=== PATIENT | male | born 1965 | race African-American/Black ===

== ENCOUNTER 2016-12-23 12:56 | Inpatient (IN) | payer OTHER ==
[2016-12-23 13:46] VITALS: BMI 37.9
--- NOTE | 2016-12-23 17:18 | HP ---
COWS - Scale Resting Pulse: 2= [place] 101-120 Sweatin= Chills/Flushing Restless Observation: 1= Difficult to Sit Still Pupil Size: 0= Normal to Room Light Bone or Joint Aches: 2= Severe Diffuse Aches Runny Nose/ Eye Tearin= Runny Nose/Eyes GI Upset > 30mins: 2= Nausea/Diarrhea Tremor Observation: 2= Slight Tremor Visible Yawning Observation: 0= None Anxiety or Irritability: 2=Irritable/Anxious Goose Flesh Skin: 0=Smooth Skin COWS Score: 14 CIWA Score - CIWA Score Nausea/Vomitin-Mild Nausea/No Vomiting Muscle Tremors: 4-Moderate,w/Arms Extend Anxiety: 4-Mod. Anxious/Guarded Agitation: 4-Moderately Restless Paroxysmal Sweats: 1-Minimal Palms Moist Orientation: 0-Oriented Tacttile Disturbances: 0-None Auditory Disturbances: 0-None Visual Disturbances: 0-None Headache: 0-None Present CIWA-Ar Total Score: 14 Admission ROS S - HPI Chief Complaint: WITHDRAWAL SX Allergies/Adverse Reactions: Allergies Allergy/AdvReac Type Severity Reaction Status Date / Time No Known Drug Allergies Allergy Verified 12/23/16 16:39 Red meat AdvReac Uncoded 12/23/16 16:39 History of Present Illness: 51 YEARS OLD MALE WITH LONG HISTORY OF ALCOHOL XANAX NICOTINE DEPENDENCE, DENIES MEDICAL ISSUE DENIES MENTAL ILLNESS IS ADMITTED TO DETOX Exam Limitations: No Limitations - Ebola screening Have you traveled outside of the country in the last 21 days: No Have you had contact with anyone from an Ebola affected area: No Have you been sick,other than usual withdrawal symptoms: No Do you have a fever: No - Review of Systems Constitutional: Changes in sleep, Weight Stable EENT: reports: No Symptoms Reported Respiratory: reports: No Symptoms reported Cardiac: reports: No Symptoms Reported GI: reports: Nausea, Poor Fluid Intake, Abdominal cramping : reports: No Symptoms Reported Musculoskeletal: reports: Back Pain, Joint Pain, Muscle Pain, Neck Pain Integumentary: reports: No Symptoms Reported Neuro: reports: Tremors Endocrine: reports: No Symptoms Reported Hematology: reports: No Symptoms Reported Psychiatric: reports: Judgement Intact, Mood/Affect Appropiate, Orientated x3 Other Systems: Reviewed and Negative Patient History - Patient Medical History Hx Anemia: No Hx Asthma: No Hx Chronic Obstructive Pulmonary Disease (COPD): No Hx Cancer: No Hx Cardiac Disorders: No Hx Congestive Heart Failure: No Hx Hypertension: No Hx Hypercholesterolemia: No Hx Pacemaker: No HX Cerebrovascular Accident: No Hx Seizures: No Hx Dementia: No Hx Diabetes: No Hx Gastrointestinal Disorders: No Hx Liver Disease: No Hx Genitourinary Disorders: No Hx Sexually Transmitted Disorders: No Hx Renal Disease (ESRD): No Hx Thyroid Disease: No Hx Human Immunodeficiency Virus (HIV): No Hx Hepatitis C: No Hx Depression: No Hx Suicide Attempt: No Hx Bipolar Disorder: No Hx Schizophrenia: No - Patient Surgical History Past Surgical History: No - PPD History Previous Implant?: Yes Documented Results: Negative w/o proof Implanted On Prior [facility] Admission?: No PPD to be Administered?: Yes - Smoking Cessation Smoking history: Current every day smoker Have you smoked in the past 12 months: Yes Aproximately how many cigarettes per day: 20 Cigars Per Day: 0 Hx Chewing Tobacco Use: No Initiated information on smoking cessation: Yes 'Breaking Loose' booklet given: 12/23/16 - Substance & Tx. History Hx Alcohol Use: Yes Hx Substance Use: Yes Substance Use Type: Alcohol, Heroin, Tranquilizers Hx Substance Use Treatment: Yes (2010) - Substances Abused Alprazolam (Xanax) Route: Oral Frequency: Daily Amount used: 6-8MG Age of first use: 33 Date of Last Use: 12/22/16 Heroin Route: Inhalation Frequency: Daily Amount used: 20 BAGS Age of first use: 16 Date of Last Use: 12/22/16 Alcohol Route: Oral Frequency: Daily Amount used: 1 PINT MIC[place]EL Age of first use: 17 Date of Last Use: 12/22/16 Admission Physical Exam [facility] - Vital Signs Vital Signs: Vital Signs - 24 hr 12/23/16 13:44 Temperature 98.7 F Pulse Rate 105 H Respiratory 18 Rate Blood Pressure 152/119 [facility] Breath Alcohol Content Breath Alcohol Content: 0 Urine Drug Screen - Results Drug Screen Negative: No Urine Drug Screen Results: OPI-Opiates, BZO-Benzodiazepines, MTD-Methadone
[2016-12-23] MEDS ORDERED: MAG HYDROX/AL HYDROX/SIMETH 30 ML UNIT-DOSE CUP PO PRN (17:47)
[2016-12-23] MEDS ORDERED: MAGNESIUM CITRATE 300 ML BOTTLE PO PRN (17:47)
[2016-12-23] MEDS ORDERED: LOPERAMIDE HCL 2 MG CAPSULE PO PRN (17:47)
[2016-12-23] MEDS ORDERED: diphenhydrAMINE HCL 50 MG CAPSULE PO PRN (17:47)
[2016-12-23] MEDS ORDERED: MAGNESIUM HYDROX 2400MG/30ML ORAL SUSPENSION 30 ML CUP PO PRN (17:47)
[2016-12-23] MEDS ORDERED: NICOTINE 21 MG/24 HOURS TOPICAL PATCH TD PRN (17:47)
[2016-12-23] MEDS ORDERED: ACETAMINOPHEN 325 MG TABLET (FP) PO PRN (17:47)
[2016-12-23] MEDS ORDERED: MENTHOL/PHENOL 1 EACH UD MM PRN (17:47)
[2016-12-23] MEDS ORDERED: P-EPHED 60MG/TRIPROLIDI 2.5MG TABLET PO PRN (17:47)
[2016-12-23] MEDS ORDERED: IBUPROFEN 400 MG TABLET (FP) PO PRN (17:47)
[2016-12-23] MEDS ORDERED: NICOTINE POLACRILEX 4 MG GUM BC PRN (17:47)
[2016-12-23] MEDS ORDERED: guaiFENesin/D-METHORPHAN HB 10 ML UNIT-DOSE CUPS PO PRN (17:47)
--- NOTE | 2016-12-23 17:47 | HP ---
COWS - Scale Resting Pulse: 2= [place] 101-120 Sweatin= Chills/Flushing Restless Observation: 3= Extraneous Movement Pupil Size: 0= Normal to Room Light Bone or Joint Aches: 1= Mild Discomfort Runny Nose/ Eye Tearin= Nasal Congestion GI Upset > 30mins: 3= Vomiting/Diarrhea Tremor Observation: 2= Slight Tremor Visible Yawning Observation: 0= None Anxiety or Irritability: 2=Irritable/Anxious Goose Flesh Skin: 0=Smooth Skin COWS Score: 15 CIWA Score - CIWA Score Nausea/Vomitin Muscle Tremors: 4-Moderate,w/Arms Extend Anxiety: 3 Agitation: 2 Paroxysmal Sweats: 1-Minimal Palms Moist Orientation: 1-Uncertain about Date Tacttile Disturbances: 0-None Auditory Disturbances: 0-None Visual Disturbances: 0-None Headache: 1-Very Mild CIWA-Ar Total Score: 14 Admission ROS [facility] - HPI Chief Complaint: withdrawal sx Allergies/Adverse Reactions: Allergies Allergy/AdvReac Type Severity Reaction Status Date / Time No Known Drug Allergies Allergy Verified 12/23/16 16:39 Red meat AdvReac Uncoded 12/23/16 16:39 History of Present Illness: 51 years old male with long history of alcohol xanax opiate nicotine dependence denies medical denies mental illness is admitted to detox Exam Limitations: No Limitations - Ebola screening Have you traveled outside of the country in the last 21 days: No Have you had contact with anyone from an Ebola affected area: No Have you been sick,other than usual withdrawal symptoms: No Do you have a fever: No - Review of Systems Constitutional: Changes in sleep, Weight Stable EENT: reports: No Symptoms Reported Respiratory: reports: No Symptoms reported Cardiac: reports: No Symptoms Reported GI: reports: Nausea, Poor Fluid Intake, Vomiting, Abdominal cramping : reports: No Symptoms Reported Musculoskeletal: reports: Back Pain, Joint Pain, Muscle Pain, Neck Pain Integumentary: reports: No Symptoms Reported Neuro: reports: Tremors Endocrine: reports: No Symptoms Reported Hematology: reports: No Symptoms Reported Psychiatric: reports: Judgement Intact, Mood/Affect Appropiate Other Systems: Reviewed and Negative Patient History - Patient Medical History Hx Anemia: No Hx Asthma: No Hx Chronic Obstructive Pulmonary Disease (COPD): No Hx Cancer: No Hx Cardiac Disorders: No Hx Congestive Heart Failure: No Hx Hypertension: No Hx Hypercholesterolemia: No Hx Pacemaker: No HX Cerebrovascular Accident: No Hx Seizures: No Hx Dementia: No Hx Diabetes: No Hx Gastrointestinal Disorders: No Hx Liver Disease: No Hx Genitourinary Disorders: No Hx Sexually Transmitted Disorders: No Hx Renal Disease (ESRD): No Hx Thyroid Disease: No Hx Human Immunodeficiency Virus (HIV): No Hx Hepatitis C: No Hx Depression: No Hx Suicide Attempt: No Hx Bipolar Disorder: No Hx Schizophrenia: No - Patient Surgical History Past Surgical History: No - PPD History Previous Implant?: Yes Documented Results: Negative w/o proof Implanted On Prior [facility] Admission?: No PPD to be Administered?: Yes - Smoking Cessation Smoking history: Current every day smoker Have you smoked in the past 12 months: Yes Aproximately how many cigarettes per day: 20 Hx Chewing Tobacco Use: No Initiated information on smoking cessation: Yes 'Breaking Loose' booklet given: 12/23/16 - Substance & Tx. History Hx Alcohol Use: Yes Hx Substance Use: Yes Substance Use Type: Alcohol, Heroin, Tranquilizers Hx Substance Use Treatment: Yes (2010 [facility]) - Substances Abused Alprazolam (Xanax) Route: Oral Frequency: Daily Amount used: 6-8MG Age of first use: 33 Date of Last Use: 12/22/16 Heroin Route: Inhalation Frequency: Daily Amount used: 20 BAGS Age of first use: 16 Date of Last Use: 12/22/16 Alcohol Route: Oral Frequency: Daily Amount used: 1 P[place] MICHAEL Age of first use: 17 Date of Last Use: 12/22/16 Family Disease History - Family Disease History Family Disease History: Other: Father () Admission Physical Exam [facility] - Vital Signs Vital Signs: Vital Signs - 24 hr 12/23/16 13:44 Temperature 98.7 F Pulse Rate 105 H Respiratory 18 Rate Blood Pressure 152/119 - Physical General Appearance: Yes: Appropriately Dressed, Mild Distress, Obese, Tremorous , Irritable, Sweating, Anxious HEENTM: Yes: Hearing grossly Normal, Normal ENT Inspection, Normocephalic, Normal Voice Respiratory: Yes: Chest Non-Tender, Lungs Clear, Normal Breath Sounds, No Respiratory Distress, No Accessory Muscle Use Neck: Yes: Supple, Trachea in good position Breast: Yes: Breasts Symetrical Cardiology: Yes: Regular Rhythm, S1, S2, Tachycardia Abdominal: Yes: Non Tender, Soft, Increased Bowel Sounds Genitourinary: Yes: Within Normal Limits Back: Yes: Normal Inspection Musculoskeletal: Yes: full range of Motion, Gait Steady, Back pain, Muscle Pain Extremities: Yes: Normal Inspection, Normal Range of Motion, Non-Tender, Tremors Neurological: Yes: Alert, Motor Strength 5/5, Normal Mood/Affect, Normal Response Integumentary: Yes: Warm Lymphatic: Yes: Within Normal Limits - Diagnostic (1) Alcohol dependence with uncomplicated withdrawal Current Visit: Yes Status: Acute (2) Nicotine dependence Current Visit: Yes Status: Acute Qualifiers: Nicotine product type: cigarettes Substance use status: in withdrawal Qualified Code(s): F17.213 - Nicotine dependence, cigarettes, with withdrawal; F17.213 - Nicotine dependence, cigarettes, with withdrawal (3) Opioid dependence with withdrawal Current Visit: Yes Status: Acute (4) Sedative, hypnotic or anxiolytic dependence with withdrawal, uncomplicated Current Visit: Yes Status: Acute Cleared for Admission [facility] - Detox or Rehab [facility] Level of Care: Medically Managed Detox Regimen/Protocol: Methadone/Valium [facility] Breath Alcohol Content Breath Alcohol Content: 0 Urine Drug Screen - Results Drug Screen Negative: No Urine Drug Screen Results: OPI-Opiates, BZO-Benzodiazepines, MTD-Methadone
[2016-12-23] MEDS ORDERED: diazePAM 5 MG TABLET PO ONE (18:15)
[2016-12-23] MEDS ORDERED: METHADONE HCL 10 MG TABLET (FOR DETOX USE ONLY) PO ONE ×2 (18:30→23:00)
[2016-12-23 22:01] LABS: URINE APPEARANCE SLCLOUDY; URINE BILIRUBIN NEGATIVE (NEGATIVE); URINE BLOOD NEGATIVE (NEGATIVE); URINE COLOR DKYELLOW; URINE GLUCOSE (UA) NEGATIVE (NEGATIVE); URINE KETONE NEGATIVE (NEGATIVE); URINE NITRITE NEGATIVE (NEGATIVE); URINE PROTEIN NEGATIVE (NEGATIVE); URINE UROBILINOGEN NEGATIVE mg/dL (0.2-1.0)
[2016-12-23] MEDS: diazePAM 5 MG TABLET PO SCH (22:44)
[2016-12-23] MEDS: CLOTRIMAZOLE 1% CREAM 15 GM TUBE TP SCH (22:44)
[2016-12-23] MEDS: THIAMINE HCL 100 MG TABLET (FP) PO SCH (22:44)
[2016-12-24] MEDS: diazePAM 5 MG TABLET PO PRN ×2 (02:56→10:59)
[2016-12-24] MEDS: diazePAM 5 MG TABLET PO SCH (06:35)
[2016-12-24 09:21] LABS: MCH 25.1 pg (25.7-33.7); MCHC 31.8 g/dl (32.0-35.9); MEAN PLT VOLUME 9.2 fl (7.5-11.1); PLATELET COUNT 265 K/MM3 (134-434); RDW 15.7 % (11.9-15.9); WHITE BLOOD COUNT 7.1 K/mm3 (4.0-10.0)
[2016-12-24] MEDS ORDERED: METHADONE HCL 10 MG TABLET (FOR DETOX USE ONLY) PO SCH (10:00)
[2016-12-24 10:16] LABS: HIV 1 & 2 AB NEGATIVE; HIV 1 AGp24 NEGATIVE
[2016-12-24 10:19] LABS: URINE LEUK ESTERASE Negative (NEGATIVE)
[2016-12-24 10:48] LABS: ALBUMIN 3.3 g/dl (3.4-5.0); ANION GAP 8 (8-16); BILIRUBIN,TOTAL 0.2 mg/dL (0.2-1.0); CALCIUM 8.1 mg/dL (8.5-10.1); CO2 27 mmol/L (21-32); CREATININE 1.2 mg/dL (0.7-1.3); GLUCOSE,RANDOM 96 mg/dL (74-106); SGOT/AST 20 U/L (15-37); SGPT/ALT 31 U/L (12-78)
[2016-12-24 10:49] LABS: ALK PHOS 77 U/L (45-117); TOT PROT 6.8 g/dl (6.4-8.2)
[2016-12-24] MEDS: PRENATAL VITAMINS W/ FOLIC ACID TABLET (FP) PO SCH (10:58)
[2016-12-24] MEDS: CLOTRIMAZOLE 1% CREAM 15 GM TUBE TP SCH ×2 (10:59→22:30)
--- NOTE | 2016-12-24 12:46 | PN ---
S CIWA - CIWA Score Nausea/Vomitin Muscle Tremors: 3 Anxiety: 2 Agitation: 1-Slight > Activity Paroxysmal Sweats: No Perspiration Orientation: 1-Uncertain about Date Tacttile Disturbances: 0-None Auditory Disturbances: 1-Very Mild Visual Disturbances: 2-Mild Sensitivity Headache: 2-Mild CIWA-Ar Total Score: 14 S COWS - Scale Resting Pulse: 0= [place] 80 or Below Sweatin=Flushed/Facial Moisture Restless Observation: 1= Difficult to Sit Still Pupil Size: 2= Moderately Dilated Bone or Joint Aches: 1= Mild Discomfort Runny Nose/ Eye Tearin= Runny Nose/Eyes GI Upset > 30mins: 1= Stomach Cramp Tremor Observation of Outstretched Hands: 0= None Yawning Observation: 0= None Anxiety or Irritability: 2=Irritable/Anxious Goose Flesh Skin: 0=Smooth Skin COWS Score: 11 S Progress Note (SOAP) Objective: 12/24/16 12:45 Laboratory Tests 12/23/16 12/24/16 12/24/16 21:00 07:50 07:50 WBC 7.1 RBC 4.82 Hgb 12.1 Hct 38.1 MCV 79.0 L MCH 25.1 L MCHC 31.8 L RDW 15.7 Plt Count 265 MPV 9.2 Sodium Potassium Chloride Carbon Dioxide Anion Gap BUN Creatinine Creat Clearance w eGFR Random Glucose Calcium Total Bilirubin AST ALT Alkaline Phosphatase Total Protein Albumin Urine Color Dkyellow Urine Appearance Slcloudy Urine pH 5.0 Ur Specific [place] >= 1.030 H Urine Protein Negative Urine Glucose (UA) Negative Urine Ketones Negative Urine Blood Negative Urine Nitrite Negative Urine Bilirubin Negative Urine Urobilinogen Negative Ur Leukocyte Esterase Negative RPR Titer HIV 1&2 Antibody Screen Negative HIV P24 Antigen Negative 12/24/16 12/24/16 07:50 07:50 WBC RBC Hgb Hct MCV MCH MCHC RDW Plt Count MPV Sodium 139 Potassium 4.0 Chloride 104 Carbon Dioxide 27 Anion Gap 8 BUN 16 Creatinine 1.2 Creat Clearance w eGFR > 60 Random Glucose 96 Calcium 8.1 L Total Bilirubin 0.2 AST 20 ALT 31 Alkaline Phosphatase 77 Total Protein 6.8 Albumin 3.3 L Urine Color Urine Appearance Urine pH Ur Specific [place] Urine Protein Urine Glucose (UA) Urine Ketones Urine Blood Urine Nitrite Urine Bilirubin Urine Urobilinogen Ur Leukocyte Esterase RPR Titer Nonreactive HIV 1&2 Antibody Screen HIV P24 Antigen Vital Signs - 24 hr 12/23/16 12/23/16 12/23/16 13:44 19:06 23:53 Temperature 98.7 F 96.0 F L 97.5 F L Pulse Rate 105 H 99 H 91 H Respiratory 18 20 20 Rate Blood Pressure 152/119 150/97 121/84 12/24/16 12/24/16 12/24/16 04:35 06:49 11:24 Temperature 97.6 F 98.1 F Pulse Rate 104 H 83 Respiratory 18 18 20 Rate Blood Pressure 134/96 130/78 Assessment: 12/24/16 12:46 withdrawal Plan: cont detox protocol
[2016-12-24] MEDS ORDERED: chlordiazePOXIDE HCL 25 MG CAPSULE PO PRN (13:06)
[2016-12-24] MEDS ORDERED: chlordiazePOXIDE HCL 25 MG CAPSULE PO ONE (13:06)
--- NOTE | 2016-12-24 13:20 | EKG ---
Test Reason : Blood Pressure : / mmHG Vent. Rate : 096 BPM Atrial Rate : 096 BPM P-R Int : 170 ms QRS Dur : 098 ms QT Int : 364 ms P-R-T Axes : 046 -02 037 degrees QTc Int : 459 ms NORMAL SINUS RHYTHM POSSIBLE LEFT ATRIAL ENLARGEMENT BORDERLINE ECG NO PREVIOUS ECGS AVAILABLE Confirmed by MICHELINE SIMMS, KIZZY ([id number] on 12/24/2016 1:19:43 PM Referred By: Confirmed By:KIZZY TOBIAS MD
[2016-12-24] MEDS: chlordiazePOXIDE HCL 25 MG CAPSULE PO SCH ×2 (22:09→23:07)
[2016-12-24] MEDS: THIAMINE HCL 100 MG TABLET (FP) PO SCH (22:30)
[2016-12-25] MEDS: chlordiazePOXIDE HCL 25 MG CAPSULE PO SCH ×2 (06:54→11:25)
[2016-12-25] MEDS ORDERED: diazePAM 5 MG TABLET PO SCH (10:00)
[2016-12-25] MEDS: CLOTRIMAZOLE 1% CREAM 15 GM TUBE TP SCH ×2 (11:25→22:46)
[2016-12-25] MEDS: PRENATAL VITAMINS W/ FOLIC ACID TABLET (FP) PO SCH (11:25)
[2016-12-25] MEDS: METHADONE HCL 5 MG TABLET (FOR DETOX USE ONLY) PO SCH (11:39)
--- NOTE | 2016-12-25 14:56 | PN ---
S CIWA - CIWA Score Nausea/Vomitin-Mild Nausea/No Vomiting Muscle Tremors: 3 Anxiety: 3 Agitation: 4-Moderately Restless Paroxysmal Sweats: 3 Orientation: 0-Oriented Tacttile Disturbances: 0-None Auditory Disturbances: 0-None Visual Disturbances: 0-None Headache: 0-None Present CIWA-Ar Total Score: 14 [facility]HS COWS - Scale Resting Pulse: 0= [place] 80 or Below Sweatin=Flushed/Facial Moisture Restless Observation: 1= Difficult to Sit Still Pupil Size: 0= Normal to Room Light Bone or Joint Aches: 1= Mild Discomfort Runny Nose/ Eye Tearin= Runny Nose/Eyes GI Upset > 30mins: 2= Nausea/Diarrhea Tremor Observation of Outstretched Hands: 2= Slight Tremor Visible Yawning Observation: 1= 1-2x During Session Anxiety or Irritability: 2=Irritable/Anxious Goose Flesh Skin: 0=Smooth Skin COWS Score: 13 S Progress Note (SOAP) Subjective: Anxiety,tremors,sweating,interrupted sleep,constipation. Objective: 12/25/16 14:55 Last Vital Signs Temp Pulse Resp BP Pulse Ox 97.7 F 74 20 86/55 12/25/16 06:00 12/25/16 06:00 12/25/16 06:00 12/25/16 06:00 Laboratory Tests 12/23/16 12/24/16 12/24/16 21:00 07:50 07:50 WBC 7.1 RBC 4.82 Hgb 12.1 Hct 38.1 MCV 79.0 L MCH 25.1 L MCHC 31.8 L RDW 15.7 Plt Count 265 MPV 9.2 Sodium Potassium Chloride Carbon Dioxide Anion Gap BUN Creatinine Creat Clearance w eGFR Random Glucose Calcium Total Bilirubin AST ALT Alkaline Phosphatase Total Protein Albumin Urine Color Dkyellow Urine Appearance Slcloudy Urine pH 5.0 Ur Specific [place] >= 1.030 H Urine Protein Negative Urine Glucose (UA) Negative Urine Ketones Negative Urine Blood Negative Urine Nitrite Negative Urine Bilirubin Negative Urine Urobilinogen Negative Ur Leukocyte Esterase Negative RPR Titer HIV 1&2 Antibody Screen Negative HIV P24 Antigen Negative 12/24/16 12/24/16 07:50 07:50 WBC RBC Hgb Hct MCV MCH MCHC RDW Plt Count MPV Sodium 139 Potassium 4.0 Chloride 104 Carbon Dioxide 27 Anion Gap 8 BUN 16 Creatinine 1.2 Creat Clearance w eGFR > 60 Random Glucose 96 Calcium 8.1 L Total Bilirubin 0.2 AST 20 ALT 31 Alkaline Phosphatase 77 Total Protein 6.8 Albumin 3.3 L Urine Color Urine Appearance Urine pH Ur Specific [place] Urine Protein Urine Glucose (UA) Urine Ketones Urine Blood Urine Nitrite Urine Bilirubin Urine Urobilinogen Ur Leukocyte Esterase RPR Titer Nonreactive HIV 1&2 Antibody Screen HIV P24 Antigen labs noted Assessment: 12/25/16 14:56 Withdrawal sx. Plan: Continue detox
[2016-12-25] MEDS: DOCUSATE SODIUM 100 MG CAPSULE (FP) PO SCH ×3 (18:19→22:34)
[2016-12-25] MEDS: chlordiazePOXIDE 5 MG CAPSULE PO SCH ×2 (18:21→22:32)
[2016-12-25] MEDS: THIAMINE HCL 100 MG TABLET (FP) PO SCH (22:32)
[2016-12-26 06:30] VITALS: TEMP 97.9
[2016-12-26] MEDS: DOCUSATE SODIUM 100 MG CAPSULE (FP) PO SCH (07:44)
[2016-12-26] MEDS: chlordiazePOXIDE 5 MG CAPSULE PO SCH ×2 (07:44→10:44)
[2016-12-26 10:15] VITALS: BP 119/79; PULSE 82
--- NOTE | 2016-12-26 10:20 | PN ---
BHS Progress Note (SOAP) Subjective: irritable sweats agitation interrupted sleep Objective: 12/26/16 10:19 Vital Signs Temperature 97.9 F 12/26/16 10:14 Pulse Rate 82 12/26/16 10:14 Respiratory Rate 20 12/26/16 10:14 Blood Pressure 119/79 12/26/16 10:14 O2 Sat by Pulse Oximetry (%) [id number] ambulating no acute distress Assessment: 12/26/16 10:20 withdrawal sx Plan: continue detox increase fluids
[2016-12-26] MEDS: CLOTRIMAZOLE 1% CREAM 15 GM TUBE TP SCH (10:43)
[2016-12-26] MEDS: PRENATAL VITAMINS W/ FOLIC ACID TABLET (FP) PO SCH (10:43)
[2016-12-26] MEDS: METHADONE HCL 5 MG TABLET (FOR DETOX USE ONLY) PO SCH (10:44)
--- NOTE | 2016-12-26 11:20 | PN ---
[facility] Progress Note Note: pt refused to comply with unit rules, was cursing to staff and stating "go fuck yourself bitches,. I don't need to listen to anything anyone says to me I do my own. Fuck off. security called pt escorted off the unit. pt refused all papers asked for him to sign.
--- NOTE | 2016-12-26 11:20 | DS ---
[facility] Detox Discharge Summary Admission Date: 12/23/16 - History Present History: Alcohol Dependence, Opioid Dependence, Sedative Dependence - Physical Exam Results Vital Signs: Vital Signs Temperature 97.9 F 12/26/16 10:14 Pulse Rate 82 12/26/16 10:14 Respiratory Rate 20 12/26/16 10:14 Blood Pressure 119/79 12/26/16 10:14 O2 Sat by Pulse Oximetry (%) - Treatment Hospital Course: Discharged Condition Good - Medication Discharge Medications: Ambulatory Orders NK [No Known Home Medication] 12/23/16 - AMA Did Patient Leave Against Medical Advice: No (pt did not comply with unit rules)
[2016-12-26] MEDS ORDERED: chlordiazePOXIDE HCL 10 MG CAPSULE PO SCH (17:00)
[2016-12-27] MEDS ORDERED: diazePAM 5 MG TABLET PO SCH (10:00)
[2016-12-27] MEDS ORDERED: METHADONE HCL 10 MG TABLET (FOR DETOX USE ONLY) PO SCH (10:00)
[2016-12-28] MEDS ORDERED: METHADONE HCL 5 MG TABLET (FOR DETOX USE ONLY) PO SCH (06:00)
== END 2016-12-26 11:25 | disposition home or self-care (01) | DRG 773 ==
LOC: YASAS 12:56 → Y6N 17:11
PROVIDERS: ADMIT Internal Medicine; ATTEND Internal Medicine
PROC: HZ2ZZZZ Detoxification Services for Substance Abuse Treatment (ICD-10-PCS; principal; 2016-12-23)
DX: F11.23 Opioid dependence with withdrawal (principal); F10.230 Alcohol dependence with withdrawal, uncomplicated; F13.230 Sedative, hypnotic or anxiolytic dependence with withdrawal, uncomplicated; F17.213 Nicotine dependence, cigarettes, with withdrawal; F91.8 Other conduct disorders; R00.0 Tachycardia, unspecified; E66.9 Obesity, unspecified; Z91.19 Patient's noncompliance with other medical treatment and regimen; Z68.37 Body mass index [BMI] 37.0-37.9, adult; Z91.048 Other nonmedicinal substance allergy status; Z59.0 Homelessness
CPT/HCPCS: 36415; 80053; 81003; 85027; 86593; 87389; 93005; 93010

== ENCOUNTER 2017-03-03 12:46 | Inpatient (IN) | payer OTHER ==
[2017-03-03 13:48] VITALS: BMI 38.2
--- NOTE | 2017-03-03 18:21 | HP ---
COWS - Scale Resting Pulse: 1= [place] 81-100 Sweatin=Flushed/Facial Moisture Restless Observation: 1= Difficult to Sit Still Pupil Size: 1= Pupils >than Normal Bone or Joint Aches: 1= Mild Discomfort Runny Nose/ Eye Tearin= Nasal Congestion GI Upset > 30mins: 2= Nausea/Diarrhea Tremor Observation: 1= Tremor [place], Not Seen Yawning Observation: 1= 1-2x During Session Anxiety or Irritability: 2=Irritable/Anxious Goose Flesh Skin: 3=Piloerection COWS Score: 16 CIWA Score - CIWA Score Nausea/Vomitin-Mild Nausea/No Vomiting Muscle Tremors: 2 Anxiety: 3 Agitation: 2 Paroxysmal Sweats: 2 Orientation: 1-Uncertain about Date Tacttile Disturbances: 0-None Auditory Disturbances: 0-None Visual Disturbances: 0-None Headache: 2-Mild CIWA-Ar Total Score: 13 Admission ROS [facility] - HPI Chief Complaint: WITHDRAWAL SYMPTOMS Allergies/Adverse Reactions: Allergies Allergy/AdvReac Type Severity Reaction Status Date / Time No Known Drug Allergies Allergy Verified 12/23/16 16:39 Red meat AdvReac Severe Nausea Uncoded 03/03/17 14:38 History of Present Illness: 51 Y.O. MAN WITH A HISTORY OF HEROIN, ALCOHOL AND XANAX DEPENDENCE IS HERE SEEKING DETOX. HE WAS LAST HERE FOR DETOX IN 12/20 BUT WAS ADMINISTRATIVELY DISCHARGED. - Ebola screening Have you traveled outside of the country in the last 21 days: No Have you had contact with anyone from an Ebola affected area: No Have you been sick,other than usual withdrawal symptoms: No Do you have a fever: No - Review of Systems Constitutional: Chills, Changes in sleep EENT: reports: Tearing, Nose Congestion Respiratory: reports: No Symptoms reported Cardiac: reports: No Symptoms Reported GI: reports: Diarrhea, Nausea, Abdominal cramping : reports: No Symptoms Reported Musculoskeletal: reports: Back Pain Integumentary: reports: Change in Hair/Nails Neuro: reports: Headache, Tremors Endocrine: reports: No Symptoms Reported Hematology: reports: No Symptoms Reported Psychiatric: reports: Judgement Intact, Mood/Affect Appropiate, Depressed Other Systems: Reviewed and Negative Patient History - Patient Medical History Hx Anemia: No Hx Asthma: Yes (as a child) Hx Chronic Obstructive Pulmonary Disease (COPD): No Hx Cancer: No Hx Cardiac Disorders: No Hx Congestive Heart Failure: No Hx Hypertension: No Hx Hypercholesterolemia: No Hx Pacemaker: No HX Cerebrovascular Accident: No Hx Seizures: No Hx Dementia: No Hx Diabetes: No Hx Gastrointestinal Disorders: No Hx Liver Disease: No Hx Genitourinary Disorders: No Hx Sexually Transmitted Disorders: No Hx Renal Disease (ESRD): No Hx Thyroid Disease: No Hx Human Immunodeficiency Virus (HIV): No Hx Hepatitis C: No Hx Depression: Yes Hx Suicide Attempt: No Hx Bipolar Disorder: No Hx Schizophrenia: No - Patient Surgical History Past Surgical History: No Hx Neurologic Surgery: No Hx Cataract Extraction: No Hx Cardiac Surgery: No Hx Lung Surgery: No Hx Breast Surgery: No Hx Breast Biopsy: No Hx Abdominal Surgery: No Hx Appendectomy: No Hx Cholecystectomy: No Hx Genitourinary Surgery: No Hx Section: No Hx Orthopedic Surgery: No Anesthesia Reaction: No - PPD History Previous Implant?: Yes Documented Results: Negative w/proof Implanted On Prior R Admission?: Yes Date: 12/25/16 Results: 0 mm PPD to be Administered?: No - Reproductive History Patient is a Female of Child Bearing Age (11 -55 yrs old): No - Smoking Cessation Smoking history: Current every day smoker Have you smoked in the past 12 months: Yes Aproximately how many cigarettes per day: 30 Cigars Per Day: 0 Hx Chewing Tobacco Use: No Initiated information on smoking cessation: Yes 'Breaking Loose' booklet given: 03/03/17 - Substance & Tx. History Hx Alcohol Use: Yes Hx Substance Use: Yes Substance Use Type: Alcohol, Heroin, Tranquilizers Hx Substance Use Treatment: Yes ([facility]: 12/2016) - Substances Abused Heroin Route: Inhalation Frequency: Daily Amount used: 15 bags Age of first use: 17 Date of Last Use: 03/02/17 Alcohol-gin/beer Route: Oral Frequency: Daily Amount used: 1/2-1 pt./1-2 (12 oz.) Age of first use: 17 Date of Last Use: 03/02/17 Xanax Route: Oral Frequency: 3-6 times per week Amount used: 6 mg. Age of first use: 38 Date of Last Use: 03/02/17 Family Disease History - Family Disease History Family Disease History: Other: Father () Admission Physical Exam [facility] - Vital Signs Vital Signs: Vital Signs - 24 hr 03/03/17 13:40 Temperature 97.3 F L Pulse Rate 86 Respiratory 18 Rate Blood Pressure 121/83 - Physical General Appearance: Yes: Nourished, Disheveled, Anxious HEENTM: Yes: Hearing grossly Normal, Normal ENT Inspection, Normocephalic Respiratory: Yes: Lungs Clear, Normal Breath Sounds Neck: Yes: No masses,lesions,Nodules, Trachea in good position Breast: Yes: Breast Exam Deferred Cardiology: Yes: Regular Rhythm, Regular Rate Abdominal: Yes: Normal Bowel Sounds, Non Tender, Flat Genitourinary: Yes: Other (NO COMPLAINTS REPORTED) Back: Yes: Within Normal Limits, Normal Inspection Musculoskeletal: Yes: Within Normal Limits, full range of Motion, Gait Steady Extremities: Yes: Normal Inspection, Normal Range of Motion, Non-Tender Neurological: Yes: Alert, Motor Strength 5/5, Normal Mood/Affect, Normal Response Integumentary: Yes: Normal Color, Dry, Warm Lymphatic: Yes: Within Normal Limits - Diagnostic (1) Alcohol dependence with uncomplicated withdrawal Current Visit: Yes Status: Chronic (2) Nicotine dependence Current Visit: Yes Status: Chronic Qualifiers: Nicotine product type: cigarettes Substance use status: in withdrawal Qualified Code(s): F17.213 - Nicotine dependence, cigarettes, with withdrawal (3) Opioid dependence with withdrawal Current Visit: Yes Status: Chronic (4) Sedative, hypnotic or anxiolytic dependence with withdrawal, uncomplicated Current Visit: Yes Status: Chronic Cleared for Admission [facility] - Detox or Rehab [facility] Level of Care: Medically Managed Detox Regimen/Protocol: Methadone/Librium [facility] Breath Alcohol Content Breath Alcohol Content: 0 Urine Drug Screen - Results Drug Screen Negative: No Urine Drug Screen Results: OPI-Opiates, BZO-Benzodiazepines, OXY-Oxycodone
[2017-03-03] MEDS ORDERED: IBUPROFEN 400 MG TABLET (FP) PO PRN (18:47)
[2017-03-03] MEDS ORDERED: MAGNESIUM CITRATE 300 ML BOTTLE PO PRN (18:47)
[2017-03-03] MEDS ORDERED: MENTHOL/PHENOL 1 EACH UD MM PRN (18:47)
[2017-03-03] MEDS ORDERED: P-EPHED 60MG/TRIPROLIDI 2.5MG TABLET PO PRN (18:47)
[2017-03-03] MEDS ORDERED: MAG HYDROX/AL HYDROX/SIMETH 30 ML UNIT-DOSE CUP PO PRN (18:47)
[2017-03-03] MEDS ORDERED: LOPERAMIDE HCL 2 MG CAPSULE PO PRN (18:47)
[2017-03-03] MEDS ORDERED: ACETAMINOPHEN 325 MG TABLET (FP) PO PRN (18:47)
[2017-03-03] MEDS ORDERED: guaiFENesin/D-METHORPHAN HB 10 ML UNIT-DOSE CUPS PO PRN (18:47)
[2017-03-03] MEDS ORDERED: chlordiazePOXIDE HCL 25 MG CAPSULE PO PRN (18:47)
[2017-03-03] MEDS ORDERED: NICOTINE POLACRILEX 2 MG GUM BUC PRN (18:47)
[2017-03-03] MEDS ORDERED: ALBUTEROL SO4 18 GM HFA INHALER IH PRN (18:50)
[2017-03-03] MEDS ORDERED: METHADONE HCL 10 MG TABLET (FOR DETOX USE ONLY) PO ONE ×2 (19:15→23:00)
[2017-03-03] MEDS ORDERED: chlordiazePOXIDE HCL 25 MG CAPSULE PO ONE (19:15)
[2017-03-03] MEDS: THIAMINE HCL 100 MG TABLET (FP) PO SCH (22:44)
[2017-03-03] MEDS: chlordiazePOXIDE HCL 25 MG CAPSULE PO SCH (22:44)
[2017-03-03] MEDS: hydrOXYzine PAMOATE 50 MG CAPSULE (FP) PO PRN (22:44)
[2017-03-04 03:55] LABS: URINE APPEARANCE CLEAR; URINE BILIRUBIN NEGATIVE (NEGATIVE); URINE BLOOD NEGATIVE (NEGATIVE); URINE COLOR YELLOW; URINE GLUCOSE (UA) NEGATIVE (NEGATIVE); URINE KETONE NEGATIVE (NEGATIVE); URINE LEUK ESTERASE NEGATIVE (NEGATIVE); URINE NITRITE NEGATIVE (NEGATIVE); URINE PROTEIN NEGATIVE (NEGATIVE)
[2017-03-04] MEDS: chlordiazePOXIDE HCL 25 MG CAPSULE PO SCH ×4 (06:02→22:30)
[2017-03-04] MEDS ORDERED: METHADONE HCL 10 MG TABLET (FOR DETOX USE ONLY) PO SCH (10:00)
[2017-03-04 10:09] LABS: MCH 24.8 pg (25.7-33.7); MCHC 31.7 g/dl (32.0-35.9); MEAN CELL VOLUME 78.4 fl (80-96); MEAN PLT VOLUME 9.8 fl (7.5-11.1); PLATELET COUNT 228 K/MM3 (134-434); RBC 4.84 M/mm3 (4.00-5.60); RDW 15.5 % (11.9-15.9); WHITE BLOOD COUNT 5.8 K/mm3 (4.0-10.0)
[2017-03-04 10:22] LABS: CHLORIDE 102 mmol/L (98-107); POTASSIUM 3.6 mmol/L (3.5-5.1); SODIUM 138 mmol/L (136-145)
[2017-03-04] MEDS: PRENATAL VITAMINS W/ FOLIC ACID TABLET (FP) PO SCH (10:29)
[2017-03-04] MEDS: NICOTINE 21 MG/24 HOURS TOPICAL PATCH TD SCH (10:30)
[2017-03-04 10:42] LABS: ALBUMIN 3.2 g/dl (3.4-5.0); ALK PHOS 76 U/L (45-117); ANION GAP 7 (8-16); BILIRUBIN,TOTAL 0.3 mg/dL (0.2-1.0); BLOOD UREA NITROGEN 12 mg/dL (7-18); CALCIUM 8.4 mg/dL (8.5-10.1); CO2 29 mmol/L (21-32); CREATININE 1.1 mg/dL (0.7-1.3); GLUCOSE,RANDOM 93 mg/dL (74-106); SGOT/AST 16 U/L (15-37); SGPT/ALT 26 U/L (12-78); TOT PROT 6.7 g/dl (6.4-8.2)
--- NOTE | 2017-03-04 11:27 | EKG ---
Test Reason : Blood Pressure : / mmHG Vent. Rate : 068 BPM Atrial Rate : 068 BPM P-R Int : 180 ms QRS Dur : 092 ms QT Int : 404 ms P-R-T Axes : 058 005 011 degrees QTc Int : 429 ms NORMAL SINUS RHYTHM NORMAL ECG WHEN COMPARED WITH ECG OF 23-DEC-2016 17:46, NO SIGNIFICANT CHANGE WAS FOUND BASELINE ARTIFACT Confirmed by KIZZY TOBIAS MD ([id number]) on 03/04/2017 11:27:15 AM Referred By: Confirmed By:KIZZY TOBIAS MD
--- NOTE | 2017-03-04 14:21 | CONSULT ---
[facility] Psychiatric Consult - Data Date of interview: 03/04/17 Admission source: [facility] Identifying data: Readmission to [facility] for this 51 y/o AA male seeking detox treatment on for heroin,alcohol and xanax dependence.Patient is single without children,domiciled,unemployed and supported on Public Assistance.. Substance Abuse History: Confirmed by patient in this interview.Details in current [facility] report : Smoking history: Current every day smoker. Have you smoked in the past 12 months: Yes. Aproximately how many cigarettes per day: 30. Cigars Per Day: 0. Hx Chewing Tobacco Use: No. Initiated information on smoking cessation: Yes. 'Breaking Loose' booklet given: 03/03/17. - Substance & Tx. History. Hx Alcohol Use: Yes. Hx Substance Use: Yes. Substance Use Type : Alcohol, Heroin, Tranquilizers. Hx Substance Use Treatment: Yes ([facility] : 12/2016). - Substances Abused. Heroin. Route: Inhalation. Frequency: Daily. Amount used: 15 bags. Age of first use: 17. Date of Last Use: . Alcohol-gin/beer. Route: Oral. Frequency: Daily. Amount used: 1/2-1 pt./1-2 (12 oz.). Age of first use: 17. Date of Last Use: 03/02/17. Xanax. Route: Oral. Frequency: 3-6 times per week. Amount used: 6 mg. Age of first use: 38. Date of Last Use: 03/02/17 Medical History: Patient endorses good general health. Psychiatric History: Patient denies. Physical/Sexual Abuse/Trauma History: Patient denies. Additional Comment: Urine Drug Screen Results: OPI-Opiates, BZO-Benzodiazepines , OXY-Oxycodone.Noted. Mental Status Exam - Mental Status Exam Alert and Oriented to: Time, Place, Person Cognitive Function: Good Patient Appearance: Well Groomed (overweight) Mood: Hopeful (calm,neutral) Patient Behavior: Sedated (mildly sedated but able to give appropriate answers to simple questions ), Appropriate, Cooperative Speech Pattern: Delayed, Slurred (but coherent and relevant) Voice Loudness: Normal Thought Process: Goal Oriented Thought Disorder: Not Present Hallucinations: Denies Suicidal Ideation: Denies Homicidal Ideation: Denies Insight/Judgement: Poor Sleep: Poorly, Difficulty falling asleep (as per self-report ; wants seroquel added to his regimen) Muscle strength/Tone: Normal Gait/Station: Normal (observed walking on the unit at medications time in the morning) Psychiatric Findings - Problem List ([place] 1, 2,3) (1) Alcohol dependence with uncomplicated withdrawal Current Visit: Yes Status: Acute (2) Opioid dependence with withdrawal Current Visit: Yes Status: Acute (3) Sedative, hypnotic or anxiolytic dependence with withdrawal, uncomplicated Current Visit: Yes Status: Acute (4) Nicotine dependence Current Visit: Yes Status: Chronic Qualifiers: Nicotine product type: cigarettes Substance use status: in withdrawal Qualified Code(s): F17.213 - Nicotine dependence, cigarettes, with withdrawal (5) Insomnia Current Visit: Yes Status: Acute - Initial Treatment Plan Initial Treatment Plan: Psychoeducation when patient is fully awake.Support.Detoxification in progress.Will observe without additional medications.Medications reconciliation : NO known medications.Pharmacy claims are surveyed : various medications at different times by multiple providers over past several months.Medications to be considered only if patient envisions continuation of care in rehabilitation.Otherwise,return to outpatient providers upon discharge from [facility].
--- NOTE | 2017-03-04 16:54 | PN ---
[facility] CIWA - CIWA Score Nausea/Vomitin-No Nausea/No Vomiting Muscle Tremors: 4-Moderate,w/Arms Extend Anxiety: 3 Agitation: 2 Paroxysmal Sweats: 3 Orientation: 0-Oriented Tacttile Disturbances: 2-Mild Itch/Numbness/Burn Auditory Disturbances: 0-None Visual Disturbances: 2-Mild Sensitivity Headache: 0-None Present CIWA-Ar Total Score: 16 S COWS - Scale Resting Pulse: 0= [place] 80 or Below Sweatin= Chills/Flushing Restless Observation: 1= Difficult to Sit Still Pupil Size: 0= Normal to Room Light Bone or Joint Aches: 0= None Runny Nose/ Eye Tearin= Nasal Congestion GI Upset > 30mins: 1= Stomach Cramp Tremor Observation of Outstretched Hands: 2= Slight Tremor Visible Yawning Observation: 1= 1-2x During Session Anxiety or Irritability: 2=Irritable/Anxious Goose Flesh Skin: 3=Piloerection COWS Score: 12 S Progress Note (SOAP) Subjective: Tremors, Interrupted Sleep, Sweating, Constipation, Fatigue. Objective: PT. A & O X 3. NO ACUTE DISTRESS. 03/04/17 16:53 Vital Signs Temperature 97.2 F L 03/04/17 13:48 Pulse Rate 67 03/04/17 13:48 Respiratory Rate 19 03/04/17 13:48 Blood Pressure 135/81 03/04/17 13:48 O2 Sat by Pulse Oximetry (%) Laboratory Tests 03/03/17 03/04/17 03/04/17 23:34 06:00 06:00 WBC 5.8 RBC 4.84 Hgb 12.0 Hct 38.0 MCV 78.4 L MCH 24.8 L MCHC 31.7 L RDW 15.5 Plt Count 228 MPV 9.8 Sodium Potassium Chloride Carbon Dioxide Anion Gap BUN Creatinine Creat Clearance w eGFR Random Glucose Calcium Total Bilirubin AST ALT Alkaline Phosphatase Total Protein Albumin Urine Color Yellow Urine Appearance Clear Urine pH 6.0 Ur Specific [place] 1.024 Urine Protein Negative Urine Glucose (UA) Negative Urine Ketones Negative Urine Blood Negative Urine Nitrite Negative Urine Bilirubin Negative Urine Urobilinogen 2.0 Ur Leukocyte Esterase Negative RPR Titer HIV 1&2 Antibody Screen Negative HIV P24 Antigen Negative 03/04/17 03/04/17 06:00 06:00 WBC RBC Hgb Hct MCV MCH MCHC RDW Plt Count MPV Sodium 138 Potassium 3.6 Chloride 102 Carbon Dioxide 29 Anion Gap 7 L BUN 12 D Creatinine 1.1 Creat Clearance w eGFR > 60 Random Glucose 93 Calcium 8.4 L Total Bilirubin 0.3 D AST 16 ALT 26 Alkaline Phosphatase 76 Total Protein 6.7 Albumin 3.2 L Urine Color Urine Appearance Urine pH Ur Specific [place] Urine Protein Urine Glucose (UA) Urine Ketones Urine Blood Urine Nitrite Urine Bilirubin Urine Urobilinogen Ur Leukocyte Esterase RPR Titer Nonreactive HIV 1&2 Antibody Screen HIV P24 Antigen LABS NOTED. Assessment: 03/04/17 16:53 WITHDRAWAL SYMPTOMS. Plan: CONTINUE DETOX.
[2017-03-04] MEDS: THIAMINE HCL 100 MG TABLET (FP) PO SCH (22:27)
[2017-03-04] MEDS: hydrOXYzine PAMOATE 50 MG CAPSULE (FP) PO PRN (22:28)
[2017-03-05] MEDS: chlordiazePOXIDE HCL 25 MG CAPSULE PO SCH ×3 (06:07→18:01)
[2017-03-05] MEDS: NICOTINE 21 MG/24 HOURS TOPICAL PATCH TD SCH (10:34)
[2017-03-05] MEDS: PRENATAL VITAMINS W/ FOLIC ACID TABLET (FP) PO SCH (10:34)
[2017-03-05] MEDS: METHADONE HCL 5 MG TABLET (FOR DETOX USE ONLY) PO SCH (10:34)
--- NOTE | 2017-03-05 13:10 | PN ---
S CIWA - CIWA Score Nausea/Vomitin-Int. Nausea w/Dry Heave Muscle Tremors: 4-Moderate,w/Arms Extend Anxiety: 4-Mod. Anxious/Guarded Agitation: 4-Moderately Restless Paroxysmal Sweats: 3 Orientation: 0-Oriented Tacttile Disturbances: 0-None Auditory Disturbances: 0-None Visual Disturbances: 0-None Headache: 0-None Present CIWA-Ar Total Score: 19 BHS COWS - Scale Resting Pulse: 0= [place] 80 or Below Sweatin= Chills/Flushing Restless Observation: 3= Extraneous Movement Pupil Size: 0= Normal to Room Light Bone or Joint Aches: 2= Severe Diffuse Aches Runny Nose/ Eye Tearin= Runny Nose/Eyes GI Upset > 30mins: 1= Stomach Cramp Tremor Observation of Outstretched Hands: 2= Slight Tremor Visible Yawning Observation: 1= 1-2x During Session Anxiety or Irritability: 2=Irritable/Anxious Goose Flesh Skin: 0=Smooth Skin COWS Score: 14 S Progress Note (SOAP) Subjective: Nausea, sweating, tremor, interrupted sleep Objective: 03/05/17 13:08 Last Vital Signs Temp Pulse Resp BP Pulse Ox 97.9 F 76 18 141/87 03/05/17 09:05 03/05/17 09:05 03/05/17 09:05 03/05/17 09:05 Laboratory Tests 03/03/17 03/04/17 03/04/17 23:34 06:00 06:00 WBC 5.8 RBC 4.84 Hgb 12.0 Hct 38.0 MCV 78.4 L MCH 24.8 L MCHC 31.7 L RDW 15.5 Plt Count 228 MPV 9.8 Sodium Potassium Chloride Carbon Dioxide Anion Gap BUN Creatinine Creat Clearance w eGFR Random Glucose Calcium Total Bilirubin AST ALT Alkaline Phosphatase Total Protein Albumin Urine Color Yellow Urine Appearance Clear Urine pH 6.0 Ur Specific [place] 1.024 Urine Protein Negative Urine Glucose (UA) Negative Urine Ketones Negative Urine Blood Negative Urine Nitrite Negative Urine Bilirubin Negative Urine Urobilinogen 2.0 Ur Leukocyte Esterase Negative RPR Titer HIV 1&2 Antibody Screen Negative HIV P24 Antigen Negative 03/04/17 03/04/17 06:00 06:00 WBC RBC Hgb Hct MCV MCH MCHC RDW Plt Count MPV Sodium 138 Potassium 3.6 Chloride 102 Carbon Dioxide 29 Anion Gap 7 L BUN 12 D Creatinine 1.1 Creat Clearance w eGFR > 60 Random Glucose 93 Calcium 8.4 L Total Bilirubin 0.3 D AST 16 ALT 26 Alkaline Phosphatase 76 Total Protein 6.7 Albumin 3.2 L Urine Color Urine Appearance Urine pH Ur Specific [place] Urine Protein Urine Glucose (UA) Urine Ketones Urine Blood Urine Nitrite Urine Bilirubin Urine Urobilinogen Ur Leukocyte Esterase RPR Titer Nonreactive HIV 1&2 Antibody Screen HIV P24 Antigen Labs noted Assessment: 03/05/17 13:09 Withdrawal symptoms Plan: Continue detox
[2017-03-05] MEDS: chlordiazePOXIDE 5 MG CAPSULE PO SCH (22:35)
[2017-03-05] MEDS: THIAMINE HCL 100 MG TABLET (FP) PO SCH (22:35)
[2017-03-05] MEDS: hydrOXYzine PAMOATE 50 MG CAPSULE (FP) PO PRN (22:36)
[2017-03-05] MEDS: MAGNESIUM HYDROX 2400MG/30ML ORAL SUSPENSION 30 ML CUP PO PRN (23:23)
[2017-03-06] MEDS: chlordiazePOXIDE 5 MG CAPSULE PO SCH ×3 (06:59→18:04)
[2017-03-06] MEDS: PRENATAL VITAMINS W/ FOLIC ACID TABLET (FP) PO SCH (10:20)
[2017-03-06] MEDS: NICOTINE 21 MG/24 HOURS TOPICAL PATCH TD SCH (10:21)
[2017-03-06] MEDS: METHADONE HCL 5 MG TABLET (FOR DETOX USE ONLY) PO SCH (10:21)
[2017-03-06] MEDS: MAGNESIUM HYDROX 2400MG/30ML ORAL SUSPENSION 30 ML CUP PO PRN (10:23)
--- NOTE | 2017-03-06 13:07 | PN ---
[facility] Progress Note (SOAP) Subjective: ANXIETY,IRRITABILITY,SWEATS. Objective: 03/06/17 13:06 Vital Signs Temperature 97.6 F 03/06/17 09:22 Pulse Rate 79 03/06/17 09:22 Respiratory Rate 18 03/06/17 09:22 Blood Pressure 120/85 03/06/17 09:22 O2 Sat by Pulse Oximetry (%) Laboratory Last Values WBC 5.8 K/mm3 (4.0-10.0) 03/04/17 06:00 RBC 4.84 M/mm3 (4.00-5.60) 03/04/17 06:00 Hgb 12.0 GM/dL (11.7-16.9) 03/04/17 06:00 Hct 38.0 % (35.4-49) 03/04/17 06:00 MCV 78.4 fl (80-96) L 03/04/17 06:00 MCH 24.8 pg (25.7-33.7) L 03/04/17 06:00 MCHC 31.7 g/dl (32.0-35.9) L 03/04/17 06:00 RDW 15.5 % (11.9-15.9) 03/04/17 06:00 Plt Count 228 K/MM3 (134-434) 03/04/17 06:00 MPV 9.8 fl (7.5-11.1) 03/04/17 06:00 Sodium 138 mmol/L (136-145) 03/04/17 06:00 Potassium 3.6 mmol/L (3.5-5.1) 03/04/17 06:00 Chloride 102 mmol/L (98-107) 03/04/17 06:00 Carbon Dioxide 29 mmol/L (21-32) 03/04/17 06:00 Anion Gap 7 (8-16) L 03/04/17 06:00 BUN 12 mg/dL (7-18) D 03/04/17 06:00 Creatinine 1.1 mg/dL (0.7-1.3) 03/04/17 06:00 Creat Clearance w eGFR > 60 (>60) 03/04/17 06:00 Random Glucose 93 mg/dL (74-106) 03/04/17 06:00 Calcium 8.4 mg/dL (8.5-10.1) L 03/04/17 06:00 Total Bilirubin 0.3 mg/dL (0.2-1.0) D 03/04/17 06:00 AST 16 U/L (15-37) 03/04/17 06:00 ALT 26 U/L (12-78) 03/04/17 06:00 Alkaline Phosphatase 76 U/L (45-117) 03/04/17 06:00 Total Protein 6.7 g/dl (6.4-8.2) 03/04/17 06:00 Albumin 3.2 g/dl (3.4-5.0) L 03/04/17 06:00 Urine Color Yellow 03/03/17 23:34 Urine Appearance Clear 03/03/17 23:34 Urine pH 6.0 (5.0-8.0) 03/03/17 23:34 Ur Specific [place] 1.024 (1.001-1.035) 03/03/17 23:34 Urine Protein Negative (NEGATIVE) 03/03/17 23:34 Urine Glucose (UA) Negative (NEGATIVE) 03/03/17 23:34 Urine Ketones Negative (NEGATIVE) 03/03/17 23:34 Urine Blood Negative (NEGATIVE) 03/03/17 23:34 Urine Nitrite Negative (NEGATIVE) 03/03/17 23:34 Urine Bilirubin Negative (NEGATIVE) 03/03/17 23:34 Urine Urobilinogen 2.0 mg/dL (0.2-1.0) 03/03/17 23:34 Ur Leukocyte Esterase Negative (NEGATIVE) 03/03/17 23:34 RPR Titer Nonreactive (NONREACTIVE) 03/04/17 06:00 HIV 1&2 Antibody Screen Negative 03/04/17 06:00 HIV P24 Antigen Negative 03/04/17 06:00 Assessment: 03/06/17 13:07 WITHDRAWAL SX Plan: CONTINUE DETOX
[2017-03-06] MEDS: TOLNAFTATE 1% CREAM 15 GM TUBE TP SCH ×2 (14:30→22:25)
[2017-03-06] MEDS: THIAMINE HCL 100 MG TABLET (FP) PO SCH (22:23)
[2017-03-06] MEDS: chlordiazePOXIDE HCL 10 MG CAPSULE PO SCH (22:23)
[2017-03-06] MEDS: hydrOXYzine PAMOATE 50 MG CAPSULE (FP) PO PRN (22:24)
[2017-03-07] MEDS: chlordiazePOXIDE HCL 10 MG CAPSULE PO SCH ×3 (05:49→17:35)
[2017-03-07] MEDS ORDERED: METHADONE HCL 10 MG TABLET (FOR DETOX USE ONLY) PO SCH (10:00)
[2017-03-07] MEDS: PRENATAL VITAMINS W/ FOLIC ACID TABLET (FP) PO SCH (10:13)
[2017-03-07] MEDS: DOCUSATE SODIUM 100 MG CAPSULE (FP) PO SCH ×2 (10:15→22:17)
[2017-03-07] MEDS: NICOTINE 21 MG/24 HOURS TOPICAL PATCH TD SCH (10:15)
[2017-03-07] MEDS: TOLNAFTATE 1% CREAM 15 GM TUBE TP SCH ×2 (10:15→22:18)
[2017-03-07] MEDS: SENNOSIDES 8.6MG TABLET (FP) PO SCH ×2 (10:15→22:17)
--- NOTE | 2017-03-07 11:24 | PN ---
[facility] Progress Note (SOAP) Subjective: Body Aches, Anxious, Stomach Cramping, Constipation, Interrupted Sleep. Objective: PT. A & O X 2, OBSERVED AMBULATING ON UNIT. NO ACUTE DISTRESS. 03/07/17 11:22 Vital Signs Temperature 98.0 F 03/07/17 09:43 Pulse Rate 76 03/07/17 09:43 Respiratory Rate 20 03/07/17 09:43 Blood Pressure 122/85 03/07/17 09:43 O2 Sat by Pulse Oximetry (%) Laboratory Tests 03/03/17 03/04/17 03/04/17 23:34 06:00 06:00 WBC 5.8 RBC 4.84 Hgb 12.0 Hct 38.0 MCV 78.4 L MCH 24.8 L MCHC 31.7 L RDW 15.5 Plt Count 228 MPV 9.8 Sodium Potassium Chloride Carbon Dioxide Anion Gap BUN Creatinine Creat Clearance w eGFR Random Glucose Calcium Total Bilirubin AST ALT Alkaline Phosphatase Total Protein Albumin Urine Color Yellow Urine Appearance Clear Urine pH 6.0 Ur Specific [place] 1.024 Urine Protein Negative Urine Glucose (UA) Negative Urine Ketones Negative Urine Blood Negative Urine Nitrite Negative Urine Bilirubin Negative Urine Urobilinogen 2.0 Ur Leukocyte Esterase Negative RPR Titer HIV 1&2 Antibody Screen Negative HIV P24 Antigen Negative 03/04/17 03/04/17 06:00 06:00 WBC RBC Hgb Hct MCV MCH MCHC RDW Plt Count MPV Sodium 138 Potassium 3.6 Chloride 102 Carbon Dioxide 29 Anion Gap 7 L BUN 12 D Creatinine 1.1 Creat Clearance w eGFR > 60 Random Glucose 93 Calcium 8.4 L Total Bilirubin 0.3 D AST 16 ALT 26 Alkaline Phosphatase 76 Total Protein 6.7 Albumin 3.2 L Urine Color Urine Appearance Urine pH Ur Specific [place] Urine Protein Urine Glucose (UA) Urine Ketones Urine Blood Urine Nitrite Urine Bilirubin Urine Urobilinogen Ur Leukocyte Esterase RPR Titer Nonreactive HIV 1&2 Antibody Screen HIV P24 Antigen LABS NOTED. Assessment: 03/07/17 11:23 WITHDRAWAL SYMPTOMS. Plan: CONTINUE DETOX.
[2017-03-07] MEDS ORDERED: ZOLPIDEM TARTRATE 10 MG TABLET (PARK CARE ONLY) PO PRN (16:35)
--- NOTE | 2017-03-07 20:04 | PN ---
[facility] Progress Note Note: Psychiatry Attending's note : Met earlier with patient. Issue addressed : insomnia. Sleep hygiene discussed. Seroquel 100 mg po hs.Ordered. Side effects/benefits reviewed with patient. Mr Leos agrees with this careplan.
[2017-03-07] MEDS ORDERED: QUEtiapine FUMARATE 100 MG TABLET (FP) PO SCH (22:00)
[2017-03-07 22:10] VITALS: PULSE 82
[2017-03-07] MEDS: THIAMINE HCL 100 MG TABLET (FP) PO SCH (22:17)
[2017-03-08] MEDS ORDERED: METHADONE HCL 5 MG TABLET (FOR DETOX USE ONLY) PO SCH (06:00)
[2017-03-08 06:08] VITALS: BP 95/64; TEMP 96.1
--- NOTE | 2017-03-08 13:06 | DS ---
[facility] Detox Discharge Summary Admission Date: 03/03/17 Discharge Date: 03/08/17 - History Present History: Alcohol Dependence, Opioid Dependence Additional Comments: PATIENT GOING TO [facility] ([place] REHAB FOR AFTERCARE. PATIENT ADVISED TO FOLLOW-UP WITH [employer] DR. REYES ([place] FOR GENERAL MEDICAL ASSESSMENT WHEN POSSIBLE. PATIENT WAS DISCHARGED FROM DETOX UNIT IN STABLE MEDICAL CONDITION. Pertinent Past History: Asthma (during childhood), Depression, Nicotine Dependence. - Physical Exam Results Vital Signs: Vital Signs Temperature 96.1 F L 03/08/17 06:08 Pulse Rate 82 03/08/17 06:08 Respiratory Rate 18 03/08/17 06:08 Blood Pressure 95/64 03/08/17 06:08 O2 Sat by Pulse Oximetry (%) Pertinent Admission Physical Exam Findings: WITHDRAWAL SYMPTOMS. Laboratory Tests 03/03/17 03/04/17 03/04/17 23:34 06:00 06:00 WBC 5.8 RBC 4.84 Hgb 12.0 Hct 38.0 MCV 78.4 L MCH 24.8 L MCHC 31.7 L RDW 15.5 Plt Count 228 MPV 9.8 Sodium Potassium Chloride Carbon Dioxide Anion Gap BUN Creatinine Creat Clearance w eGFR Random Glucose Calcium Total Bilirubin AST ALT Alkaline Phosphatase Total Protein Albumin Urine Color Yellow Urine Appearance Clear Urine pH 6.0 Ur Specific [place] 1.024 Urine Protein Negative Urine Glucose (UA) Negative Urine Ketones Negative Urine Blood Negative Urine Nitrite Negative Urine Bilirubin Negative Urine Urobilinogen 2.0 Ur Leukocyte Esterase Negative RPR Titer HIV 1&2 Antibody Screen Negative HIV P24 Antigen Negative 03/04/17 03/04/17 06:00 06:00 WBC RBC Hgb Hct MCV MCH MCHC RDW Plt Count MPV Sodium 138 Potassium 3.6 Chloride 102 Carbon Dioxide 29 Anion Gap 7 L BUN 12 D Creatinine 1.1 Creat Clearance w eGFR > 60 Random Glucose 93 Calcium 8.4 L Total Bilirubin 0.3 D AST 16 ALT 26 Alkaline Phosphatase 76 Total Protein 6.7 Albumin 3.2 L Urine Color Urine Appearance Urine pH Ur Specific [place] Urine Protein Urine Glucose (UA) Urine Ketones Urine Blood Urine Nitrite Urine Bilirubin Urine Urobilinogen Ur Leukocyte Esterase RPR Titer Nonreactive HIV 1&2 Antibody Screen HIV P24 Antigen LABS NOTED. - Treatment Hospital Course: Detox Protocol Followed, Detoxed Safely, Responded well, Discharged Condition Good, Rehab Referral Accepted Patient has Accepted a Rehab Referral to: [facility] ([place] - Medication Discharge Medications: Ambulatory Orders NK [No Known Home Medication] 12/23/16 - Diagnosis (1) Alcohol dependence with uncomplicated withdrawal Status: Acute (2) Nicotine dependence Status: Chronic Qualifiers: Nicotine product type: cigarettes Substance use status: in withdrawal Qualified Code(s): F17.213 - Nicotine dependence, cigarettes, with withdrawal (3) Sedative, hypnotic or anxiolytic dependence with withdrawal, uncomplicated Status: Acute (4) Opioid dependence with withdrawal Status: Acute (5) Insomnia Status: Acute Qualifiers: Insomnia type: unspecified Qualified Code(s): G47.00 - Insomnia, unspecified - AMA Did Patient Leave Against Medical Advice: No
== END 2017-03-08 10:08 | disposition home or self-care (01) | DRG 773 ==
LOC: YASAS 12:46 → Y3N 16:31
PROVIDERS: ADMIT Internal Medicine; ATTEND Internal Medicine
PROC: HZ2ZZZZ Detoxification Services for Substance Abuse Treatment (ICD-10-PCS; principal; 2017-03-03)
DX: F11.23 Opioid dependence with withdrawal (principal); F13.230 Sedative, hypnotic or anxiolytic dependence with withdrawal, uncomplicated; F10.230 Alcohol dependence with withdrawal, uncomplicated; F17.213 Nicotine dependence, cigarettes, with withdrawal; F32.9 Major depressive disorder, single episode, unspecified; G47.00 Insomnia, unspecified; Z91.018 Allergy to other foods
CPT/HCPCS: 36415; 80053; 81003; 85027; 86593; 87389; 93005; 93010

== ENCOUNTER 2017-05-19 13:04 | Inpatient (IN) | payer OTHER ==
[2017-05-19 17:34] VITALS: BMI 34.7
--- NOTE | 2017-05-19 20:28 | HP ---
COWS - Scale Resting Pulse: 0= [place] 80 or Below Sweatin=Flushed/Facial Moisture Restless Observation: 1= Difficult to Sit Still Pupil Size: 1= Pupils >than Normal Bone or Joint Aches: 1= Mild Discomfort Runny Nose/ Eye Tearin= Runny Nose/Eyes GI Upset > 30mins: 3= Vomiting/Diarrhea Tremor Observation: 2= Slight Tremor Visible Yawning Observation: 1= 1-2x During Session Anxiety or Irritability: 2=Irritable/Anxious Goose Flesh Skin: 3=Piloerection COWS Score: 18 CIWA Score - CIWA Score Nausea/Vomitin Muscle Tremors: 3 Anxiety: 3 Agitation: 1-Slight > Activity Paroxysmal Sweats: 3 Orientation: 2-Disoriented Date<2 days Tacttile Disturbances: 2-Mild Itch/Numbness/Burn Auditory Disturbances: 0-None Visual Disturbances: 1-Very Mild Sensitivity Headache: 2-Mild CIWA-Ar Total Score: 20 Admission ROS S - HPI Chief Complaint: heroin, alcohol and xanax withdrawal, "I want to get better to , this heroin is a problem." Allergies/Adverse Reactions: Allergies Allergy/AdvReac Type Severity Reaction Status Date / Time No Known Drug Allergies Allergy Verified 05/19/17 18:00 Red meat AdvReac Severe Nausea Uncoded 05/19/17 18:00 History of Present Illness: 51 yo male with hx of nicotine, heroin, xanax, and alcohol is here seeking detox. PMHX: insomnia, anxiety. Last detox [facility] 03/03/17 - 03/08/17. Denies history of overdose, blackouts or seizures. Longest period of sobriety 8 years. Exam Limitations: No Limitations - Ebola screening Have you traveled outside of the country in the last 21 days: No Have you had contact with anyone from an Ebola affected area: No Have you been sick,other than usual withdrawal symptoms: No Do you have a fever: No - Review of Systems Constitutional: Chills, Loss of Appetite, Changes in sleep EENT: reports: No Symptoms Reported Respiratory: reports: No Symptoms reported Cardiac: reports: No Symptoms Reported GI: reports: Nausea, Poor Appetite, Poor Fluid Intake, Vomiting (2x), Abdominal cramping Musculoskeletal: reports: Back Pain, Joint Pain Integumentary: reports: No Symptoms Reported Neuro: reports: Headache, Tingling, Weakness Endocrine: reports: Excessive Sweating Hematology: reports: No Symptoms Reported Psychiatric: reports: Orientated x3, Anxious Other Systems: Reviewed and Negative Patient History - Patient Medical History Hx Anemia: No Hx Asthma: Yes (as a child) Hx Chronic Obstructive Pulmonary Disease (COPD): No Hx Cancer: No Hx Cardiac Disorders: No Hx Congestive Heart Failure: No Hx Hypertension: No Hx Hypercholesterolemia: No Hx Pacemaker: No HX Cerebrovascular Accident: No Hx Seizures: No Hx Dementia: No Hx Diabetes: No Hx Gastrointestinal Disorders: No Hx Liver Disease: No Hx Genitourinary Disorders: No Hx Sexually Transmitted Disorders: No Hx Renal Disease (ESRD): No Hx Thyroid Disease: No Hx Human Immunodeficiency Virus (HIV): No Hx Hepatitis C: No Hx Depression: Yes Hx Suicide Attempt: No Hx Bipolar Disorder: No Hx Schizophrenia: No - Patient Surgical History Past Surgical History: No Hx Neurologic Surgery: No Hx Cataract Extraction: No Hx Cardiac Surgery: No Hx Lung Surgery: No Hx Breast Surgery: No Hx Breast Biopsy: No Hx Abdominal Surgery: No Hx Appendectomy: No Hx Cholecystectomy: No Hx Genitourinary Surgery: No Hx Section: No Hx Orthopedic Surgery: No Anesthesia Reaction: No - PPD History Previous Implant?: Yes Documented Results: Negative w/proof Date: 12/25/16 Results: 0 mm PPD to be Administered?: No - Reproductive History Patient is a Female of Child Bearing Age (11 -55 yrs old): No - Smoking Cessation Smoking history: Current every day smoker Have you smoked in the past 12 months: Yes Aproximately how many cigarettes per day: 30 Cigars Per Day: 0 Hx Chewing Tobacco Use: No Initiated information on smoking cessation: Yes 'Breaking Loose' booklet given: 05/19/17 - Substance & Tx. History Hx Alcohol Use: Yes Hx Substance Use: Yes Substance Use Type: Alcohol, Heroin, Tranquilizers - Substances Abused Alcohol Route: Oral Frequency: Daily Amount used: LIQUOR- 2 PINTS Age of first use: 16 Date of Last Use: 05/18/17 Heroin Route: Inhalation Frequency: Daily Amount used: 15 BAGS Age of first use: 20 Date of Last Use: 05/18/17 Alprazolam (Xanax) Route: Oral Frequency: Daily Amount used: 6mg Age of first use: 20 Date of Last Use: 05/18/17 Family Disease History - Family Disease History Family Disease History: Other: Father (), Mother () Admission Physical Exam [facility] - Vital Signs Vital Signs: Vital Signs - 24 hr 05/19/17 17:16 Temperature 97.2 F L Pulse Rate 80 Respiratory 22 Rate - Physical General Appearance: Yes: Appropriately Dressed, Mild Distress, Sweating, Anxious HEENTM: Yes: EOMI, Hearing grossly Normal, Normal ENT Inspection, Normocephalic , Normal Voice, VERNON, Pharynx Normal, Tm's normal Respiratory: Yes: Chest Non-Tender, Normal Breath Sounds, No Respiratory Distress, No Accessory Muscle Use Neck: Yes: No masses,lesions,Nodules Breast: Yes: Breast Exam Deferred Cardiology: Yes: Regular Rhythm, Regular Rate Abdominal: Yes: Normal Bowel Sounds, Non Tender, Soft Genitourinary: Yes: Within Normal Limits Back: Yes: Normal Inspection Musculoskeletal: Yes: full range of Motion, Gait Steady, Pelvis Stable, Back pain Extremities: Yes: Normal Capillary Refill, Normal Inspection, Normal Range of Motion, Non-Tender Neurological: Yes: teletray operator II-XII NML intact, Fully Oriented, Alert, Motor Strength 5/5, Depressed Affect Integumentary: Yes: Normal Color, Warm, Diaphoresis Lymphatic: Yes: Within Normal Limits - Addiitonal Findings: IMAGING ENGINEER: Reference #: [id number] - Diagnostic (1) Alcohol dependence with uncomplicated withdrawal Current Visit: Yes Status: Acute (2) Insomnia Current Visit: Yes Status: Acute Qualifiers: Insomnia type: unspecified Qualified Code(s): G47.00 - Insomnia, unspecified (3) Opioid dependence with withdrawal Current Visit: Yes Status: Acute (4) Sedative, hypnotic or anxiolytic dependence with withdrawal, uncomplicated Current Visit: Yes Status: Acute (5) Tinea pedis Current Visit: Yes Status: Acute Qualifiers: Laterality: bilateral Qualified Code(s): B35.3 - Tinea pedis (6) Depression Current Visit: Yes Status: Chronic Qualifiers: Depression Type: unspecified Qualified Code(s): F32.9 - Major depressive disorder, single episode, unspecified (7) Nicotine dependence Current Visit: Yes Status: Chronic Qualifiers: Nicotine product type: cigarettes Substance use status: in withdrawal Qualified Code(s): F17.213 - Nicotine dependence, cigarettes, with withdrawal Cleared for Admission [facility] - Detox or Rehab [facility] Level of Care: Medically Managed Detox Regimen/Protocol: Methadone/Valium [facility] Breath Alcohol Content Breath Alcohol Content: 0 Urine Drug Screen - Results Drug Screen Negative: No Urine Drug Screen Results: OPI-Opiates, BZO-Benzodiazepines, OXY-Oxycodone
[2017-05-19] MEDS ORDERED: MAGNESIUM HYDROX 2400MG/30ML ORAL SUSPENSION 30 ML CUP PO PRN (20:37)
[2017-05-19] MEDS ORDERED: MAGNESIUM CITRATE 300 ML BOTTLE PO PRN (20:37)
[2017-05-19] MEDS ORDERED: METHADONE HCL 10 MG TABLET (FOR DETOX USE ONLY) PO ONE ×2 (20:37→23:00)
[2017-05-19] MEDS ORDERED: diazePAM 5 MG TABLET PO ONE (20:37)
[2017-05-19] MEDS ORDERED: LOPERAMIDE HCL 2 MG CAPSULE PO PRN (20:37)
[2017-05-19] MEDS ORDERED: NICOTINE POLACRILEX 2 MG GUM BC PRN (20:37)
[2017-05-19] MEDS ORDERED: MENTHOL/PHENOL 1 EACH UD MM PRN (20:37)
[2017-05-19] MEDS ORDERED: IBUPROFEN 400 MG TABLET (FP) PO PRN (20:37)
[2017-05-19] MEDS ORDERED: ACETAMINOPHEN 325 MG TABLET (FP) PO PRN (20:37)
[2017-05-19] MEDS ORDERED: P-EPHED 60MG/TRIPROLIDI 2.5MG TABLET PO PRN (20:37)
[2017-05-19] MEDS ORDERED: guaiFENesin/D-METHORPHAN HB 10 ML UNIT-DOSE CUPS PO PRN (20:37)
[2017-05-19] MEDS ORDERED: diazePAM 5 MG TABLET PO PRN (20:37)
[2017-05-19] MEDS ORDERED: MAG HYDROX/AL HYDROX/SIMETH 30 ML UNIT-DOSE CUP PO PRN (20:37)
[2017-05-19] MEDS ORDERED: diazePAM 5 MG TABLET PO SCH (22:00)
[2017-05-19] MEDS ORDERED: chlordiazePOXIDE HCL 25 MG CAPSULE PO ONE (23:21)
[2017-05-19] MEDS: CLOTRIMAZOLE 1% CREAM 15 GM TUBE TP SCH (23:27)
[2017-05-19] MEDS: THIAMINE HCL 100 MG TABLET (FP) PO SCH (23:28)
[2017-05-20] MEDS: chlordiazePOXIDE HCL 25 MG CAPSULE PO SCH ×5 (00:12→22:26)
[2017-05-20] MEDS ORDERED: METHADONE HCL 10 MG TABLET (FOR DETOX USE ONLY) PO SCH (10:00)
[2017-05-20 10:10] LABS: HEMATOCRIT 37.9 % (35.4-49); HEMOGLOBIN 12.2 GM/dL (11.7-16.9); MCH 25.3 pg (25.7-33.7); MCHC 32.3 g/dl (32.0-35.9); MEAN CELL VOLUME 78.6 fl (80-96); MEAN PLT VOLUME 8.4 fl (7.5-11.1); PLATELET COUNT 280 K/MM3 (134-434); RBC 4.82 M/mm3 (4.00-5.60); RDW 15.3 % (11.9-15.9)
[2017-05-20] MEDS: CLOTRIMAZOLE 1% CREAM 15 GM TUBE TP SCH ×2 (10:22→22:27)
[2017-05-20] MEDS: PRENATAL VITAMINS W/ FOLIC ACID TABLET (FP) PO SCH (10:23)
[2017-05-20] MEDS: NICOTINE 21 MG/24 HOURS TOPICAL PATCH TD SCH (10:23)
[2017-05-20 10:28] LABS: URINE APPEARANCE CLEAR; URINE BILIRUBIN NEGATIVE (NEGATIVE); URINE BLOOD NEGATIVE (NEGATIVE); URINE COLOR YELLOW; URINE GLUCOSE (UA) NEGATIVE (NEGATIVE); URINE KETONE NEGATIVE (NEGATIVE); URINE LEUK ESTERASE NEGATIVE (NEGATIVE); URINE NITRITE NEGATIVE (NEGATIVE); URINE PROTEIN NEGATIVE (NEGATIVE)
[2017-05-20 10:28] LABS: BLOOD UREA NITROGEN 10 mg/dL (7-18); CALCIUM 8.3 mg/dL (8.5-10.1); CHLORIDE 105 mmol/L (98-107); GLUCOSE,RANDOM 83 mg/dL (74-106); POTASSIUM 4.1 mmol/L (3.5-5.1); SODIUM 142 mmol/L (136-145)
[2017-05-20 10:34] LABS: ALBUMIN 2.8 g/dl (3.4-5.0); ALK PHOS 60 U/L (45-117); ANION GAP 9 (8-16); BILIRUBIN,TOTAL 0.5 mg/dL (0.2-1.0); CO2 28 mmol/L (21-32); CREATININE 0.9 mg/dL (0.7-1.3); SGOT/AST 12 U/L (15-37); SGPT/ALT 19 U/L (12-78); TOT PROT 6.6 g/dl (6.4-8.2)
--- NOTE | 2017-05-20 12:04 | CONSULT ---
[facility] Psychiatric Consult - Data Date of interview: 05/20/17 Admission source: [facility] Identifying data: Another admission to [facility] for this 51 y/o AA male seeking detox treatment on for heroin,alcohol and xanax dependence.Patient is single without children,domiciled,unemployed and supported on Public Assistance. Substance Abuse History: Discussed with the patient.Mr Leos admits to a 30+ year history of heroin,xanax and alcohol dependence. Details in current [facility] report as follows : Smoking history: Current every day smoker. Have you smoked in the past 12 months: Yes. Aproximately how many cigarettes per day: 30. Cigars Per Day: 0. Hx Chewing Tobacco Use: No. Initiated information on smoking cessation: Yes. 'Breaking Loose' booklet given: 05/19/17. - Substance & Tx. History. Hx Alcohol Use: Yes. Hx Substance Use: Yes. Substance Use Type : Alcohol, Heroin, Tranquilizers. - Substances Abused. Alcohol. Route: Oral. Frequency: Daily. Amount used: LIQUOR- 2 PINTS. Age of first use: 16. Date of Last Use: 05/18/17. Heroin. Route: Inhalation. Frequency: Daily. Amount used: 15 BAGS. Age of first use: 20. Date of Last Use: 05/18/17. Alprazolam (Xanax). Route: Oral. Frequency: Daily. Amount used: 6mg. Age of first use: 20. Date of Last Use: 05/18/17 Medical History: No reported medical problems.Patient endorses good health. Psychiatric History: Patient denies history of psychiatric hospitalizations.He, however, reports previous psychiatric OPD care at an [facility] in the [place] ([phone]). Diagnosed with Anxiety Disorder and MDD.Mr Leos used to be maintained on a regimen of seroquel,sertraline,depakote,wellbutrin, gabapentin and xanax.Confirmed by review of pharmacy claims of 10/11/16.Has dropped out of outpatient care for the past 8-10 months.No contact with his psychiatrist since October 2016.No medications taken.Patient denies history of suicide attempts. Physical/Sexual Abuse/Trauma History: Patient denies. Additional Comment: Urine Drug Screen Results: OPI-Opiates, BZO-Benzodiazepines , OXY-Oxycodone.Noted. Mental Status Exam - Mental Status Exam Alert and Oriented to: Time, Place, Person Cognitive Function: Good Patient Appearance: Well Groomed (obese) Mood: Apprehensive Affect: Appropriate, Normal Range Patient Behavior: Fatigued, Appropriate, Cooperative Speech Pattern: Clear, Appropriate Voice Loudness: Normal Thought Process: Goal Oriented Thought Disorder: Not Present Hallucinations: Denies Suicidal Ideation: Denies Homicidal Ideation: Denies Insight/Judgement: Poor Sleep: Poorly, Difficulty falling asleep Appetite: Good Muscle strength/Tone: Normal Gait/Station: Normal Psychiatric Findings - Problem List ([place] 1, 2,3) (1) Alcohol dependence with uncomplicated withdrawal Current Visit: Yes Status: Acute (2) Opioid dependence with withdrawal Current Visit: Yes Status: Acute (3) Sedative, hypnotic or anxiolytic dependence with withdrawal, uncomplicated Current Visit: Yes Status: Acute (4) Nicotine dependence Current Visit: Yes Status: Acute Qualifiers: Nicotine product type: cigarettes Substance use status: in withdrawal Qualified Code(s): F17.213 - Nicotine dependence, cigarettes, with withdrawal (5) Substance induced mood disorder Current Visit: Yes Status: Acute (6) Insomnia Current Visit: Yes Status: Acute Qualifiers: Insomnia type: unspecified Qualified Code(s): G47.00 - Insomnia, unspecified - Initial Treatment Plan Initial Treatment Plan: Records reviewed.Psychoeducation.Sleep hygiene.Detoxification in progress.Patient has expressed the wish to resume seroquel and wellbutrin.Ordered : seroquel 100 mg po hs + wellbutrin XL 150 mg po daily.Side effects/benefits of both drugs are discussed with the patient.Made aware of risk for oversedation,metabolic syndrome,abnormal involuntary movements and seizures.Mr Leos endorses these medications as well tolerated and effective in the past.Consent (verbal) given.Observation.
[2017-05-20] MEDS ORDERED: cloNIDine HCL 0.1 MG TABLET PO ONE (15:36)
--- NOTE | 2017-05-20 15:42 | PN ---
S CIWA - CIWA Score Nausea/Vomitin Muscle Tremors: None Anxiety: 4-Mod. Anxious/Guarded Agitation: 2 Paroxysmal Sweats: 3 Orientation: 2-Disoriented Date<2 days Tacttile Disturbances: 2-Mild Itch/Numbness/Burn Auditory Disturbances: 0-None Visual Disturbances: 2-Mild Sensitivity Headache: 0-None Present CIWA-Ar Total Score: 20 BHS COWS - Scale Resting Pulse: 0= [place] 80 or Below Sweatin=Flushed/Facial Moisture Restless Observation: 1= Difficult to Sit Still Pupil Size: 0= Normal to Room Light Bone or Joint Aches: 2= Severe Diffuse Aches Runny Nose/ Eye Tearin= None GI Upset > 30mins: 3= Vomiting/Diarrhea Tremor Observation of Outstretched Hands: 0= None Yawning Observation: 1= 1-2x During Session Anxiety or Irritability: 4=Extreme Anxiety Goose Flesh Skin: 3=Piloerection COWS Score: 16 BHS Progress Note (SOAP) Subjective: Vomiting, Anxious, Sweating, Body Aches, Interrupted Sleep. Objective: PATIENT A & O X 2 (UNCERTAIN ABOUT CURRENT DAY/ DATE). PATIENT OBSERVED AMBULATING ON UNIT. NO ACUTE DISTRESS. 05/20/17 15:40 Vital Signs Temperature 97.8 F 05/20/17 10:43 Pulse Rate 69 05/20/17 10:43 Respiratory Rate 20 05/20/17 10:43 Blood Pressure 131/89 05/20/17 10:43 O2 Sat by Pulse Oximetry (%) Laboratory Tests 05/20/17 05/20/17 05/20/17 07:40 07:40 07:40 WBC 8.0 D RBC 4.82 Hgb 12.2 Hct 37.9 MCV 78.6 L MCH 25.3 L MCHC 32.3 RDW 15.3 Plt Count 280 D MPV 8.4 D Sodium 142 Potassium 4.1 Chloride 105 Carbon Dioxide 28 Anion Gap 9 BUN 10 Creatinine 0.9 Creat Clearance w eGFR > 60 Random Glucose 83 Calcium 8.3 L Total Bilirubin 0.5 D AST 12 L D ALT 19 D Alkaline Phosphatase 60 D Total Protein 6.6 Albumin 2.8 L Urine Color Urine Appearance Urine pH Ur Specific [place] Urine Protein Urine Glucose (UA) Urine Ketones Urine Blood Urine Nitrite Urine Bilirubin Urine Urobilinogen Ur Leukocyte Esterase RPR Titer Nonreactive 03/17/18 08:50 WBC RBC Hgb Hct MCV MCH MCHC RDW Plt Count MPV Sodium Potassium Chloride Carbon Dioxide Anion Gap BUN Creatinine Creat Clearance w eGFR Random Glucose Calcium Total Bilirubin AST ALT Alkaline Phosphatase Total Protein Albumin Urine Color Yellow Urine Appearance Clear Urine pH 7.0 Ur Specific [place] 1.019 Urine Protein Negative Urine Glucose (UA) Negative Urine Ketones Negative Urine Blood Negative Urine Nitrite Negative Urine Bilirubin Negative Urine Urobilinogen 2.0 Ur Leukocyte Esterase Negative RPR Titer LABS NOTED. Assessment: 05/20/17 15:41 WITHDRAWAL SYMPTOMS. Plan: CONTINUE DETOX. INCREASE DAILY PO FLUID INTAKE. PRN ZOFRAN SL FOR VOMITING. CLONIDINE, 0.1 MG PO X 1 FOR ELEVATED BP AND DETOX SYMPTOMS.
--- NOTE | 2017-05-20 18:46 | EKG ---
Test Reason : Blood Pressure : / mmHG Vent. Rate : 063 BPM Atrial Rate : 063 BPM P-R Int : 172 ms QRS Dur : 092 ms QT Int : 408 ms P-R-T Axes : 058 014 030 degrees QTc Int : 417 ms NORMAL SINUS RHYTHM WITH SINUS ARRHYTHMIA NORMAL ECG WHEN COMPARED WITH ECG OF 03-MAR-2017 21:08, NO SIGNIFICANT CHANGE WAS FOUND Confirmed by MISTI MORGAN MD ([id number]) on 05/20/2017 6:45:55 PM Referred By: Confirmed By:MISTI MORGAN MD
[2017-05-20] MEDS: THIAMINE HCL 100 MG TABLET (FP) PO SCH (22:26)
[2017-05-20] MEDS: QUEtiapine FUMARATE 100 MG TABLET (FP) PO SCH (22:27)
[2017-05-21] MEDS: chlordiazePOXIDE HCL 25 MG CAPSULE PO SCH ×3 (06:40→17:32)
[2017-05-21] MEDS ORDERED: diazePAM 5 MG TABLET PO SCH (10:00)
[2017-05-21] MEDS: CLOTRIMAZOLE 1% CREAM 15 GM TUBE TP SCH ×2 (10:20→23:01)
[2017-05-21] MEDS: PRENATAL VITAMINS W/ FOLIC ACID TABLET (FP) PO SCH (10:20)
[2017-05-21] MEDS: METHADONE HCL 5 MG TABLET (FOR DETOX USE ONLY) PO SCH (10:21)
[2017-05-21] MEDS: NICOTINE 21 MG/24 HOURS TOPICAL PATCH TD SCH (10:21)
[2017-05-21] MEDS ORDERED: cloNIDine HCL 0.1 MG TABLET PO PRN (12:01)
--- NOTE | 2017-05-21 13:13 | PN ---
S CIWA - CIWA Score Nausea/Vomitin Muscle Tremors: 4-Moderate,w/Arms Extend Anxiety: 4-Mod. Anxious/Guarded Agitation: 4-Moderately Restless Paroxysmal Sweats: 3 Orientation: 0-Oriented Tacttile Disturbances: 0-None Auditory Disturbances: 0-None Visual Disturbances: 0-None Headache: 0-None Present CIWA-Ar Total Score: 20 BHS COWS - Scale Resting Pulse: 1= [place] 81-100 Sweatin=Flushed/Facial Moisture Restless Observation: 3= Extraneous Movement Pupil Size: 0= Normal to Room Light Bone or Joint Aches: 2= Severe Diffuse Aches Runny Nose/ Eye Tearin= Runny Nose/Eyes GI Upset > 30mins: 2= Nausea/Diarrhea Tremor Observation of Outstretched Hands: 2= Slight Tremor Visible Yawning Observation: 0= None Anxiety or Irritability: 2=Irritable/Anxious Goose Flesh Skin: 0=Smooth Skin COWS Score: 16 BHS Progress Note (SOAP) Subjective: N/V/D (vomited x 2 and doesn't want injection, prefers sublingual pill), tremor , chills, sweating, interrupted sleep Objective: 05/21/17 13:13 Last Vital Signs Temp Pulse Resp BP Pulse Ox 96.8 F L 86 18 151/98 05/21/17 09:27 05/21/17 09:27 05/21/17 09:27 05/21/17 09:27 Laboratory Tests 05/20/17 05/20/17 05/20/17 07:40 07:40 07:40 WBC 8.0 D RBC 4.82 Hgb 12.2 Hct 37.9 MCV 78.6 L MCH 25.3 L MCHC 32.3 RDW 15.3 Plt Count 280 D MPV 8.4 D Sodium 142 Potassium 4.1 Chloride 105 Carbon Dioxide 28 Anion Gap 9 BUN 10 Creatinine 0.9 Creat Clearance w eGFR > 60 Random Glucose 83 Calcium 8.3 L Total Bilirubin 0.5 D AST 12 L D ALT 19 D Alkaline Phosphatase 60 D Total Protein 6.6 Albumin 2.8 L Urine Color Urine Appearance Urine pH Ur Specific [place] Urine Protein Urine Glucose (UA) Urine Ketones Urine Blood Urine Nitrite Urine Bilirubin Urine Urobilinogen Ur Leukocyte Esterase RPR Titer Nonreactive Hep C Ab Diagnostic 05/20/17 05/20/17 07:40 08:50 WBC RBC Hgb Hct MCV MCH MCHC RDW Plt Count MPV Sodium Potassium Chloride Carbon Dioxide Anion Gap BUN Creatinine Creat Clearance w eGFR Random Glucose Calcium Total Bilirubin AST ALT Alkaline Phosphatase Total Protein Albumin Urine Color Yellow Urine Appearance Clear Urine pH 7.0 Ur Specific [place] 1.019 Urine Protein Negative Urine Glucose (UA) Negative Urine Ketones Negative Urine Blood Negative Urine Nitrite Negative Urine Bilirubin Negative Urine Urobilinogen 2.0 Ur Leukocyte Esterase Negative RPR Titer Hep C Ab Diagnostic <0.1 Labs reviewed Assessment: 05/21/17 13:13 Withdrawal symptoms Noted with elevated b/p Plan: Withdrawal symptoms Elevated blood pressure most likely r/t withdrawal: clonidine 0.1mg PO TID PRN ( hold if b/p < 100/60), continue to monitor
[2017-05-21] MEDS: ONDANSETRON *ODT* 4 MG TABLET SL PRN (20:03)
[2017-05-21] MEDS: chlordiazePOXIDE 5 MG CAPSULE PO SCH (23:01)
[2017-05-21] MEDS: THIAMINE HCL 100 MG TABLET (FP) PO SCH (23:01)
[2017-05-21] MEDS: QUEtiapine FUMARATE 100 MG TABLET (FP) PO SCH (23:01)
[2017-05-22] MEDS: chlordiazePOXIDE HCL 25 MG CAPSULE PO PRN ×3 (03:54→19:02)
[2017-05-22] MEDS: chlordiazePOXIDE 5 MG CAPSULE PO SCH ×3 (05:48→17:00)
[2017-05-22] MEDS: ONDANSETRON *ODT* 4 MG TABLET SL PRN (08:40)
[2017-05-22] MEDS: METHADONE HCL 5 MG TABLET (FOR DETOX USE ONLY) PO SCH (10:05)
[2017-05-22] MEDS: PRENATAL VITAMINS W/ FOLIC ACID TABLET (FP) PO SCH (10:05)
[2017-05-22] MEDS: NICOTINE 21 MG/24 HOURS TOPICAL PATCH TD SCH (10:06)
[2017-05-22] MEDS: CLOTRIMAZOLE 1% CREAM 15 GM TUBE TP SCH ×2 (10:06→22:08)
--- NOTE | 2017-05-22 11:02 | PN ---
BHS Progress Note (SOAP) Subjective: PT C/O WITHDRAWAL SX-RUNNY NOSE,IRRITABILITY,HOT/COLD SWEATS,NAUSEA WITH INCREASED SALIVATION. Objective: 05/22/17 11:01 Vital Signs Temperature 97.8 F 05/22/17 09:06 Pulse Rate 84 05/22/17 09:06 Respiratory Rate 20 05/22/17 09:06 Blood Pressure 140/95 05/22/17 09:06 O2 Sat by Pulse Oximetry (%) Laboratory Last Values WBC 8.0 K/mm3 (4.0-10.0) D 05/20/17 07:40 RBC 4.82 M/mm3 (4.00-5.60) 05/20/17 07:40 Hgb 12.2 GM/dL (11.7-16.9) 05/20/17 07:40 Hct 37.9 % (35.4-49) 05/20/17 07:40 MCV 78.6 fl (80-96) L 05/20/17 07:40 MCH 25.3 pg (25.7-33.7) L 05/20/17 07:40 MCHC 32.3 g/dl (32.0-35.9) 05/20/17 07:40 RDW 15.3 % (11.9-15.9) 05/20/17 07:40 Plt Count 280 K/MM3 (134-434) D 05/20/17 07:40 MPV 8.4 fl (7.5-11.1) D 05/20/17 07:40 Sodium 142 mmol/L (136-145) 05/20/17 07:40 Potassium 4.1 mmol/L (3.5-5.1) 05/20/17 07:40 Chloride 105 mmol/L (98-107) 05/20/17 07:40 Carbon Dioxide 28 mmol/L (21-32) 05/20/17 07:40 Anion Gap 9 (8-16) 05/20/17 07:40 BUN 10 mg/dL (7-18) 05/20/17 07:40 Creatinine 0.9 mg/dL (0.7-1.3) 05/20/17 07:40 Creat Clearance w eGFR > 60 (>60) 05/20/17 07:40 Random Glucose 83 mg/dL (74-106) 05/20/17 07:40 Calcium 8.3 mg/dL (8.5-10.1) L 05/20/17 07:40 Total Bilirubin 0.5 mg/dL (0.2-1.0) D 05/20/17 07:40 AST 12 U/L (15-37) L D 05/20/17 07:40 ALT 19 U/L (12-78) D 05/20/17 07:40 Alkaline Phosphatase 60 U/L (45-117) D 05/20/17 07:40 Total Protein 6.6 g/dl (6.4-8.2) 05/20/17 07:40 Albumin 2.8 g/dl (3.4-5.0) L 05/20/17 07:40 Urine Color Yellow 05/20/17 08:50 Urine Appearance Clear 05/20/17 08:50 Urine pH 7.0 (5.0-8.0) 05/20/17 08:50 Ur Specific [place] 1.019 (1.001-1.035) 05/20/17 08:50 Urine Protein Negative (NEGATIVE) 05/20/17 08:50 Urine Glucose (UA) Negative (NEGATIVE) 05/20/17 08:50 Urine Ketones Negative (NEGATIVE) 05/20/17 08:50 Urine Blood Negative (NEGATIVE) 05/20/17 08:50 Urine Nitrite Negative (NEGATIVE) 05/20/17 08:50 Urine Bilirubin Negative (NEGATIVE) 05/20/17 08:50 Urine Urobilinogen 2.0 mg/dL (0.2-1.0) 05/20/17 08:50 Ur Leukocyte Esterase Negative (NEGATIVE) 05/20/17 08:50 RPR Titer Nonreactive (NONREACTIVE) 05/20/17 07:40 Hep C Ab Diagnostic <0.1 s/co ratio (0.0-0.9) 05/20/17 07:40 Assessment: 05/22/17 11:01 WITHDRAWAL SX Plan: CONTINUE DETOX
[2017-05-22] MEDS ORDERED: ONDANSETRON *ODT* 4 MG TABLET SL PRN (12:30)
[2017-05-22] MEDS: CYCLOBENZAPRINE HCL 10 MG TABLET (FP) PO SCH ×2 (15:04→22:09)
[2017-05-22] MEDS: THIAMINE HCL 100 MG TABLET (FP) PO SCH (22:09)
[2017-05-22] MEDS: chlordiazePOXIDE HCL 10 MG CAPSULE PO SCH (22:09)
[2017-05-22] MEDS: QUEtiapine FUMARATE 100 MG TABLET (FP) PO SCH (22:09)
[2017-05-22] MEDS: cloNIDine HCL 0.1 MG TABLET PO SCH (22:09)
[2017-05-23] MEDS: CYCLOBENZAPRINE HCL 10 MG TABLET (FP) PO SCH ×3 (05:59→22:20)
[2017-05-23] MEDS: chlordiazePOXIDE HCL 10 MG CAPSULE PO SCH ×3 (06:00→17:25)
[2017-05-23] MEDS: hydrOXYzine PAMOATE 50 MG CAPSULE (FP) PO PRN ×2 (09:30→14:19)
[2017-05-23] MEDS ORDERED: diazePAM 5 MG TABLET PO SCH (10:00)
[2017-05-23] MEDS ORDERED: METHADONE HCL 10 MG TABLET (FOR DETOX USE ONLY) PO SCH (10:00)
[2017-05-23] MEDS: cloNIDine HCL 0.1 MG TABLET PO SCH ×2 (10:22→22:20)
[2017-05-23] MEDS: PRENATAL VITAMINS W/ FOLIC ACID TABLET (FP) PO SCH (10:22)
[2017-05-23] MEDS: NICOTINE 21 MG/24 HOURS TOPICAL PATCH TD SCH (10:23)
[2017-05-23] MEDS: CLOTRIMAZOLE 1% CREAM 15 GM TUBE TP SCH ×2 (10:24→22:21)
--- NOTE | 2017-05-23 11:13 | PN ---
BHS Progress Note (SOAP) Subjective: C/O ANXIETY WANTS MORE METHADONE. OOB BY DAYROOM SOCIALIZING WITH PEERS. AMBULATES WITH STEADY GAIT Objective: 05/23/17 11:11 Vital Signs Temperature 97.2 F L 05/23/17 09:17 Pulse Rate 76 05/23/17 09:17 Respiratory Rate 18 05/23/17 09:17 Blood Pressure 113/72 05/23/17 09:17 O2 Sat by Pulse Oximetry (%) Laboratory Last Values WBC 8.0 K/mm3 (4.0-10.0) D 05/20/17 07:40 RBC 4.82 M/mm3 (4.00-5.60) 05/20/17 07:40 Hgb 12.2 GM/dL (11.7-16.9) 05/20/17 07:40 Hct 37.9 % (35.4-49) 05/20/17 07:40 MCV 78.6 fl (80-96) L 05/20/17 07:40 MCH 25.3 pg (25.7-33.7) L 05/20/17 07:40 MCHC 32.3 g/dl (32.0-35.9) 05/20/17 07:40 RDW 15.3 % (11.9-15.9) 05/20/17 07:40 Plt Count 280 K/MM3 (134-434) D 05/20/17 07:40 MPV 8.4 fl (7.5-11.1) D 05/20/17 07:40 Sodium 142 mmol/L (136-145) 05/20/17 07:40 Potassium 4.1 mmol/L (3.5-5.1) 05/20/17 07:40 Chloride 105 mmol/L (98-107) 05/20/17 07:40 Carbon Dioxide 28 mmol/L (21-32) 05/20/17 07:40 Anion Gap 9 (8-16) 05/20/17 07:40 BUN 10 mg/dL (7-18) 05/20/17 07:40 Creatinine 0.9 mg/dL (0.7-1.3) 05/20/17 07:40 Creat Clearance w eGFR > 60 (>60) 05/20/17 07:40 Random Glucose 83 mg/dL (74-106) 05/20/17 07:40 Calcium 8.3 mg/dL (8.5-10.1) L 05/20/17 07:40 Total Bilirubin 0.5 mg/dL (0.2-1.0) D 05/20/17 07:40 AST 12 U/L (15-37) L D 05/20/17 07:40 ALT 19 U/L (12-78) D 05/20/17 07:40 Alkaline Phosphatase 60 U/L (45-117) D 05/20/17 07:40 Total Protein 6.6 g/dl (6.4-8.2) 05/20/17 07:40 Albumin 2.8 g/dl (3.4-5.0) L 05/20/17 07:40 Urine Color Yellow 05/20/17 08:50 Urine Appearance Clear 05/20/17 08:50 Urine pH 7.0 (5.0-8.0) 05/20/17 08:50 Ur Specific [place] 1.019 (1.001-1.035) 05/20/17 08:50 Urine Protein Negative (NEGATIVE) 05/20/17 08:50 Urine Glucose (UA) Negative (NEGATIVE) 05/20/17 08:50 Urine Ketones Negative (NEGATIVE) 05/20/17 08:50 Urine Blood Negative (NEGATIVE) 05/20/17 08:50 Urine Nitrite Negative (NEGATIVE) 05/20/17 08:50 Urine Bilirubin Negative (NEGATIVE) 05/20/17 08:50 Urine Urobilinogen 2.0 mg/dL (0.2-1.0) 05/20/17 08:50 Ur Leukocyte Esterase Negative (NEGATIVE) 05/20/17 08:50 RPR Titer Nonreactive (NONREACTIVE) 05/20/17 07:40 Hep C Ab Diagnostic <0.1 s/co ratio (0.0-0.9) 05/20/17 07:40 Assessment: 05/23/17 11:11 NO ACUTE DISTRESS Plan: CONTINUE DETOX. VISTARIL 50 MG PO Q4H PRN
[2017-05-23] MEDS: THIAMINE HCL 100 MG TABLET (FP) PO SCH (22:20)
[2017-05-23] MEDS: QUEtiapine FUMARATE 100 MG TABLET (FP) PO SCH (22:20)
[2017-05-24] MEDS ORDERED: METHADONE HCL 5 MG TABLET (FOR DETOX USE ONLY) PO SCH (06:00)
[2017-05-24] MEDS: CYCLOBENZAPRINE HCL 10 MG TABLET (FP) PO SCH (06:06)
[2017-05-24 09:32] VITALS: BP 123/80; PULSE 83; TEMP 96.1
[2017-05-24] MEDS: PRENATAL VITAMINS W/ FOLIC ACID TABLET (FP) PO SCH (10:05)
[2017-05-24] MEDS: CLOTRIMAZOLE 1% CREAM 15 GM TUBE TP SCH (10:05)
[2017-05-24] MEDS: cloNIDine HCL 0.1 MG TABLET PO SCH (10:05)
[2017-05-24] MEDS: NICOTINE 21 MG/24 HOURS TOPICAL PATCH TD SCH (10:06)
--- NOTE | 2017-05-24 12:46 | PN ---
BHS Progress Note (SOAP) Subjective: DETOX COMPLETED. ALERT O X 3. PT REFERRED TO REHAB TODAY. Objective: 05/24/17 12:46 Vital Signs Temperature 96.1 F L 05/24/17 09:30 Pulse Rate 83 05/24/17 09:30 Respiratory Rate 16 05/24/17 09:30 Blood Pressure 123/80 05/24/17 09:30 O2 Sat by Pulse Oximetry (%) Laboratory Last Values WBC 8.0 K/mm3 (4.0-10.0) D 05/20/17 07:40 RBC 4.82 M/mm3 (4.00-5.60) 05/20/17 07:40 Hgb 12.2 GM/dL (11.7-16.9) 05/20/17 07:40 Hct 37.9 % (35.4-49) 05/20/17 07:40 MCV 78.6 fl (80-96) L 05/20/17 07:40 MCH 25.3 pg (25.7-33.7) L 05/20/17 07:40 MCHC 32.3 g/dl (32.0-35.9) 05/20/17 07:40 RDW 15.3 % (11.9-15.9) 05/20/17 07:40 Plt Count 280 K/MM3 (134-434) D 05/20/17 07:40 MPV 8.4 fl (7.5-11.1) D 05/20/17 07:40 Sodium 142 mmol/L (136-145) 05/20/17 07:40 Potassium 4.1 mmol/L (3.5-5.1) 05/20/17 07:40 Chloride 105 mmol/L (98-107) 05/20/17 07:40 Carbon Dioxide 28 mmol/L (21-32) 05/20/17 07:40 Anion Gap 9 (8-16) 05/20/17 07:40 BUN 10 mg/dL (7-18) 05/20/17 07:40 Creatinine 0.9 mg/dL (0.7-1.3) 05/20/17 07:40 Creat Clearance w eGFR > 60 (>60) 05/20/17 07:40 Random Glucose 83 mg/dL (74-106) 05/20/17 07:40 Calcium 8.3 mg/dL (8.5-10.1) L 05/20/17 07:40 Total Bilirubin 0.5 mg/dL (0.2-1.0) D 05/20/17 07:40 AST 12 U/L (15-37) L D 05/20/17 07:40 ALT 19 U/L (12-78) D 05/20/17 07:40 Alkaline Phosphatase 60 U/L (45-117) D 05/20/17 07:40 Total Protein 6.6 g/dl (6.4-8.2) 05/20/17 07:40 Albumin 2.8 g/dl (3.4-5.0) L 05/20/17 07:40 Urine Color Yellow 05/20/17 08:50 Urine Appearance Clear 05/20/17 08:50 Urine pH 7.0 (5.0-8.0) 05/20/17 08:50 Ur Specific [place] 1.019 (1.001-1.035) 05/20/17 08:50 Urine Protein Negative (NEGATIVE) 05/20/17 08:50 Urine Glucose (UA) Negative (NEGATIVE) 05/20/17 08:50 Urine Ketones Negative (NEGATIVE) 05/20/17 08:50 Urine Blood Negative (NEGATIVE) 05/20/17 08:50 Urine Nitrite Negative (NEGATIVE) 05/20/17 08:50 Urine Bilirubin Negative (NEGATIVE) 05/20/17 08:50 Urine Urobilinogen 2.0 mg/dL (0.2-1.0) 05/20/17 08:50 Ur Leukocyte Esterase Negative (NEGATIVE) 05/20/17 08:50 RPR Titer Nonreactive (NONREACTIVE) 05/20/17 07:40 Hep C Ab Diagnostic <0.1 s/co ratio (0.0-0.9) 05/20/17 07:40 Assessment: 05/24/17 12:46 NAD Plan: D/C PT TODAY
--- NOTE | 2017-05-24 12:49 | DS ---
[facility] Detox Discharge Summary Admission Date: 05/19/17 Discharge Date: 05/24/17 - History Additional Comments: DETOX COMPLETED. ALERT O X 3. PT WENT TO REHAB TODAY ON . Pertinent Past History: PLEASE SEE DX BELOW - Physical Exam Results Vital Signs: Vital Signs Temperature 96.1 F L 05/24/17 09:30 Pulse Rate 83 05/24/17 09:30 Respiratory Rate 16 05/24/17 09:30 Blood Pressure 123/80 05/24/17 09:30 O2 Sat by Pulse Oximetry (%) Pertinent Admission Physical Exam Findings: WITHDRAWAL SX Vital Signs Temperature 96.1 F L 05/24/17 09:30 Pulse Rate 83 05/24/17 09:30 Respiratory Rate 16 05/24/17 09:30 Blood Pressure 123/80 05/24/17 09:30 O2 Sat by Pulse Oximetry (%) Laboratory Last Values WBC 8.0 K/mm3 (4.0-10.0) D 05/20/17 07:40 RBC 4.82 M/mm3 (4.00-5.60) 05/20/17 07:40 Hgb 12.2 GM/dL (11.7-16.9) 05/20/17 07:40 Hct 37.9 % (35.4-49) 05/20/17 07:40 MCV 78.6 fl (80-96) L 05/20/17 07:40 MCH 25.3 pg (25.7-33.7) L 05/20/17 07:40 MCHC 32.3 g/dl (32.0-35.9) 05/20/17 07:40 RDW 15.3 % (11.9-15.9) 05/20/17 07:40 Plt Count 280 K/MM3 (134-434) D 05/20/17 07:40 MPV 8.4 fl (7.5-11.1) D 05/20/17 07:40 Sodium 142 mmol/L (136-145) 05/20/17 07:40 Potassium 4.1 mmol/L (3.5-5.1) 05/20/17 07:40 Chloride 105 mmol/L (98-107) 05/20/17 07:40 Carbon Dioxide 28 mmol/L (21-32) 05/20/17 07:40 Anion Gap 9 (8-16) 05/20/17 07:40 BUN 10 mg/dL (7-18) 05/20/17 07:40 Creatinine 0.9 mg/dL (0.7-1.3) 05/20/17 07:40 Creat Clearance w eGFR > 60 (>60) 05/20/17 07:40 Random Glucose 83 mg/dL (74-106) 05/20/17 07:40 Calcium 8.3 mg/dL (8.5-10.1) L 05/20/17 07:40 Total Bilirubin 0.5 mg/dL (0.2-1.0) D 05/20/17 07:40 AST 12 U/L (15-37) L D 05/20/17 07:40 ALT 19 U/L (12-78) D 05/20/17 07:40 Alkaline Phosphatase 60 U/L (45-117) D 05/20/17 07:40 Total Protein 6.6 g/dl (6.4-8.2) 05/20/17 07:40 Albumin 2.8 g/dl (3.4-5.0) L 05/20/17 07:40 Urine Color Yellow 05/20/17 08:50 Urine Appearance Clear 05/20/17 08:50 Urine pH 7.0 (5.0-8.0) 05/20/17 08:50 Ur Specific [place] 1.019 (1.001-1.035) 05/20/17 08:50 Urine Protein Negative (NEGATIVE) 05/20/17 08:50 Urine Glucose (UA) Negative (NEGATIVE) 05/20/17 08:50 Urine Ketones Negative (NEGATIVE) 05/20/17 08:50 Urine Blood Negative (NEGATIVE) 05/20/17 08:50 Urine Nitrite Negative (NEGATIVE) 05/20/17 08:50 Urine Bilirubin Negative (NEGATIVE) 05/20/17 08:50 Urine Urobilinogen 2.0 mg/dL (0.2-1.0) 05/20/17 08:50 Ur Leukocyte Esterase Negative (NEGATIVE) 05/20/17 08:50 RPR Titer Nonreactive (NONREACTIVE) 05/20/17 07:40 Hep C Ab Diagnostic <0.1 s/co ratio (0.0-0.9) 05/20/17 07:40 - Treatment Hospital Course: Detox Protocol Followed, Detoxed Safely, Responded well, Discharged Condition Good, Rehab Referral Accepted Patient has Accepted a Rehab Referral to: [address] - Medication Discharge Medications: Ambulatory Orders NK [No Known Home Medication] 12/23/16 - Diagnosis (1) Alcohol dependence with uncomplicated withdrawal Status: Acute (2) Opioid dependence with withdrawal Status: Acute (3) Nicotine dependence Status: Acute Qualifiers: Nicotine product type: cigarettes Substance use status: in withdrawal Qualified Code(s): F17.213 - Nicotine dependence, cigarettes, with withdrawal (4) Sedative, hypnotic or anxiolytic dependence with withdrawal, uncomplicated Status: Acute (5) Tinea pedis Status: Acute Qualifiers: Laterality: bilateral Qualified Code(s): B35.3 - Tinea pedis - AMA Did Patient Leave Against Medical Advice: No
== END 2017-05-24 12:34 | disposition other institution (70) | DRG 773 ==
LOC: YASAS 13:04 → Y3N 17:53
PROVIDERS: ADMIT Internal Medicine; ATTEND Internal Medicine
PROC: HZ2ZZZZ Detoxification Services for Substance Abuse Treatment (ICD-10-PCS; principal; 2017-05-19)
DX: F11.23 Opioid dependence with withdrawal (principal); F13.230 Sedative, hypnotic or anxiolytic dependence with withdrawal, uncomplicated; F10.230 Alcohol dependence with withdrawal, uncomplicated; F17.210 Nicotine dependence, cigarettes, uncomplicated; F32.9 Major depressive disorder, single episode, unspecified; F19.24 Other psychoactive substance dependence with psychoactive substance-induced mood disorder; G47.00 Insomnia, unspecified; B35.3 Tinea pedis
CPT/HCPCS: 36415; 80053; 81003; 85027; 86593; 93005; 93010; J0735; Q0162

== ENCOUNTER 2017-08-09 14:06 | Inpatient (IN) | payer OTHER ==
[2017-08-09 17:17] VITALS: BMI 35.5
--- NOTE | 2017-08-09 21:09 | HP ---
COWS - Scale Resting Pulse: 1= OK 81-100 Sweatin= Beads of Sweat on Face Restless Observation: 5= Unable to Sit Still Pupil Size: 1= Pupils >than Normal Bone or Joint Aches: 4=Acute Joint/Muscle Pain Runny Nose/ Eye Tearin= None GI Upset > 30mins: 0= None Tremor Observation: 0= None Yawning Observation: 0= None Anxiety or Irritability: 2=Irritable/Anxious Goose Flesh Skin: 3=Piloerection COWS Score: 19 CIWA Score - CIWA Score Nausea/Vomitin-No Nausea/No Vomiting Muscle Tremors: None Anxiety: 4-Mod. Anxious/Guarded Agitation: 4-Moderately Restless Paroxysmal Sweats: 4-Forehead w/Sweat Beads Orientation: 3-Disoriented Date>2 days Tacttile Disturbances: 2-Mild Itch/Numbness/Burn Auditory Disturbances: 0-None Visual Disturbances: 0-None Headache: 3-Moderate CIWA-Ar Total Score: 20 Admission ROS S - HPI Chief Complaint: SEEKING DETOX FOR WITHDRAWAL SX'S FROM POLYSUBSTANCE ABUSE Allergies/Adverse Reactions: Allergies Allergy/AdvReac Type Severity Reaction Status Date / Time Egg Derived Allergy Unknown Verified 08/09/17 20:28 No Known Drug Allergies Allergy Verified 08/09/17 20:28 Red meat AdvReac Severe Nausea Uncoded 08/09/17 20:28 History of Present Illness: 51 Y.O. MALE WITH LONG HX/O POLYSUBSTANCE ABUSE TO INCLUDE ALCOHOLISM. HERE FOR DETOX. CLIENT IS KNOWN TO THIS PROGRAM. LAST HERE A MONTH AGO. SELF REFERRED. REPORTS LONGEST CLEAN TIME 10 YEARS RELAPSING 2 YEARS AGO. DENIES HX/O DRUG OD, SEIZURE D/ O, SI, A/V HALLUCINATIONS Exam Limitations: No Limitations - Ebola screening Have you traveled outside of the country in the last 21 days: No (N) Have you had contact with anyone from an Ebola affected area: No Have you been sick,other than usual withdrawal symptoms: No Do you have a fever: No - Review of Systems Constitutional: Chills, Malaise, Night Sweats, Changes in sleep EENT: reports: Dental Problems (MISSING TEETH) Respiratory: reports: No Symptoms reported Cardiac: reports: No Symptoms Reported GI: reports: Constipated, Nausea, Poor Appetite : reports: No Symptoms Reported Musculoskeletal: reports: Back Pain Integumentary: reports: Sweating Neuro: reports: Headache Endocrine: reports: No Symptoms Reported Hematology: reports: No Symptoms Reported Psychiatric: reports: Anxious, Depressed, other Other Systems: Reviewed and Negative Patient History - Patient Medical History Hx Anemia: No Hx Asthma: No Hx Chronic Obstructive Pulmonary Disease (COPD): No Hx Cancer: No Hx Cardiac Disorders: No Hx Congestive Heart Failure: No Hx Hypertension: No Hx Hypercholesterolemia: No Hx Pacemaker: No HX Cerebrovascular Accident: No Hx Seizures: No Hx Dementia: No Hx Diabetes: No Hx Gastrointestinal Disorders: No Hx Liver Disease: No Hx Genitourinary Disorders: No Hx Sexually Transmitted Disorders: No Hx Renal Disease (ESRD): No Hx Thyroid Disease: No Hx Human Immunodeficiency Virus (HIV): No Hx Hepatitis C: No Hx Depression: Yes Hx Suicide Attempt: No Hx Bipolar Disorder: Yes (no psych meds since being here) Hx Schizophrenia: No - Patient Surgical History Past Surgical History: No Hx Neurologic Surgery: No Hx Cataract Extraction: No Hx Cardiac Surgery: No Hx Lung Surgery: No Hx Breast Surgery: No Hx Breast Biopsy: No Hx Abdominal Surgery: No Hx Appendectomy: No Hx Cholecystectomy: No Hx Genitourinary Surgery: No Hx Section: No Hx Orthopedic Surgery: No Anesthesia Reaction: No - PPD History Previous Implant?: Yes Documented Results: Negative w/proof Implanted On Prior [facility] Admission?: Yes Date: 12/25/16 Results: 0mm PPD to be Administered?: No - Smoking Cessation Smoking history: Current every day smoker Have you smoked in the past 12 months: Yes Aproximately how many cigarettes per day: 20 Cigars Per Day: 0 Hx Chewing Tobacco Use: No Initiated information on smoking cessation: Yes 'Breaking Loose' booklet given: 08/09/17 - Substance & Tx. History Hx Alcohol Use: Yes Hx Substance Use: No Substance Use Type: Alcohol, Heroin, Tranquilizers Hx Substance Use Treatment: Yes ([facility]) - Substances Abused Alcohol Route: Oral Frequency: Daily Amount used: liquor- 1 pint Age of first use: 20 Date of Last Use: 08/09/17 Heroin Route: Inhalation Frequency: Daily Amount used: 12bags Age of first use: 17 Date of Last Use: 08/08/17 Alprazolam (Xanax) Route: Oral Frequency: Daily Amount used: 2mg Age of first use: 32 Date of Last Use: 08/08/17 Family Disease History - Family Disease History Family Disease History: Other: Father (), Mother () Admission Physical Exam [facility] - Vital Signs Vital Signs: Vital Signs - 24 hr 08/09/17 17:15 Temperature 98.9 F Pulse Rate 99 H Respiratory 18 Rate Blood Pressure 134/93 - Physical General Appearance: Yes: Appropriately Dressed, Sweating, Anxious HEENTM: Yes: EOMI, Normocephalic, Normal Voice, VERNON, Pharynx Normal, Nasal Congestion, Other (MISSING TEETH) Respiratory: Yes: Chest Non-Tender, Lungs Clear, Normal Breath Sounds, No Respiratory Distress, No Accessory Muscle Use Neck: Yes: No masses,lesions,Nodules, Supple, Trachea in good position Breast: Yes: Breast Exam Deferred Cardiology: Yes: Regular Rhythm, S1, S2, Tachycardia Abdominal: Yes: Normal Bowel Sounds, Non Tender, Soft, Protuberent Genitourinary: Yes: Within Normal Limits Back: Yes: Normal Inspection Musculoskeletal: Yes: full range of Motion, Gait Steady Extremities: Yes: Normal Capillary Refill, Normal Range of Motion, Non-Tender Neurological: Yes: Alert, Motor Strength 5/5, Disoriented (DATE) Integumentary: Yes: Warm, Moist, Pitting Edema (BLE) Lymphatic: Yes: Within Normal Limits - Diagnostic (1) Alcohol dependence with uncomplicated withdrawal Current Visit: Yes Status: Acute (2) RUSSELL (generalized anxiety disorder) Current Visit: Yes Status: Suspected Comment: .. (3) Insomnia Current Visit: Yes Status: Acute Qualifiers: (4) MDD (major depressive disorder) Current Visit: Yes Status: Suspected Comment: .. (5) Nicotine dependence Current Visit: Yes Status: Chronic Qualifiers: Nicotine product type: cigarettes Substance use status: in withdrawal Qualified Code(s): F17.213 - Nicotine dependence, cigarettes, with withdrawal Comment: .. (6) Opioid dependence with withdrawal Current Visit: Yes Status: Acute (7) Sedative, hypnotic or anxiolytic dependence with withdrawal, uncomplicated Current Visit: Yes Status: Acute (8) Substance induced mood disorder Current Visit: Yes Status: Suspected (9) Constipation by delayed colonic transit Current Visit: Yes Status: Acute (10) PTSD (post-traumatic stress disorder) Current Visit: Yes Status: Suspected Comment: .. Cleared for Admission [facility] - Detox or Rehab [facility] Level of Care: Medically Managed Detox Regimen/Protocol: Methadone/Valium Claeared for Rehab Admission: No [facility] Breath Alcohol Content Breath Alcohol Content: 0 Urine Drug Screen - Results Drug Screen Negative: No Urine Drug Screen Results: OPI-Opiates, BZO-Benzodiazepines, MTD-Methadone, OXY- Oxycodone
[2017-08-09] MEDS ORDERED: MAGNESIUM CITRATE 300 ML BOTTLE PO PRN (21:24)
[2017-08-09] MEDS ORDERED: IBUPROFEN 400 MG TABLET (FP) PO PRN (21:24)
[2017-08-09] MEDS ORDERED: NICOTINE POLACRILEX 2 MG GUM BC PRN (21:24)
[2017-08-09] MEDS ORDERED: METHADONE HCL 10 MG TABLET (FOR DETOX USE ONLY) PO ONE ×2 (21:24→23:00)
[2017-08-09] MEDS ORDERED: MAGNESIUM HYDROX 2400MG/30ML ORAL SUSPENSION 30 ML CUP PO PRN (21:24)
[2017-08-09] MEDS ORDERED: LOPERAMIDE HCL 2 MG CAPSULE PO PRN (21:24)
[2017-08-09] MEDS ORDERED: ACETAMINOPHEN 325 MG TABLET (FP) PO PRN (21:24)
[2017-08-09] MEDS ORDERED: guaiFENesin/D-METHORPHAN HB 10 ML UNIT-DOSE CUPS PO PRN (21:24)
[2017-08-09] MEDS ORDERED: P-EPHED 60MG/TRIPROLIDI 2.5MG TABLET PO PRN (21:24)
[2017-08-09] MEDS ORDERED: MAG HYDROX/AL HYDROX/SIMETH 30 ML UNIT-DOSE CUP PO PRN (21:24)
[2017-08-09] MEDS ORDERED: chlordiazePOXIDE HCL 25 MG CAPSULE PO PRN (21:24)
[2017-08-09] MEDS ORDERED: MENTHOL/PHENOL 1 EACH UD MM PRN (21:24)
[2017-08-09] MEDS ORDERED: MELATONIN 5 MG TABLETS PO PRN (22:00)
[2017-08-10] MEDS ORDERED: METHADONE HCL 10 MG TABLET (FOR DETOX USE ONLY) PO ONE ×3 (00:30→23:00)
[2017-08-10] MEDS: chlordiazePOXIDE HCL 25 MG CAPSULE PO SCH ×5 (00:57→22:36)
[2017-08-10] MEDS: THIAMINE HCL 100 MG TABLET (FP) PO SCH ×2 (01:01→22:36)
[2017-08-10 06:27] LABS: URINE APPEARANCE CLEAR; URINE BILIRUBIN NEGATIVE (<2.0 mg/dL); URINE BLOOD NEGATIVE (NEGATIVE); URINE COLOR YELLOW; URINE GLUCOSE (UA) NEGATIVE (NEGATIVE); URINE KETONE NEGATIVE (NEGATIVE); URINE LEUK ESTERASE NEGATIVE (NEGATIVE); URINE NITRITE NEGATIVE (NEGATIVE); URINE PROTEIN NEGATIVE (NEGATIVE); URINE UROBILINOGEN NEGATIVE mg/dL (0.2-1.0)
[2017-08-10] MEDS ORDERED: METHADONE HCL 10 MG TABLET (FOR DETOX USE ONLY) PO SCH (10:00)
[2017-08-10] MEDS: PRENATAL VITAMINS W/ FOLIC ACID TABLET (FP) PO SCH (10:16)
[2017-08-10] MEDS: NICOTINE 14 MG/24 HOURS TOPICAL PATCH TD SCH (10:18)
[2017-08-10 10:24] LABS: HEMATOCRIT 36.8 % (35.4-49); HEMOGLOBIN 12.2 GM/dL (11.7-16.9); MCH 25.6 pg (25.7-33.7); MCHC 33.1 g/dl (32.0-35.9); MEAN CELL VOLUME 77.4 fl (80-96); MEAN PLT VOLUME 8.9 fl (7.5-11.1); PLATELET COUNT 234 K/MM3 (134-434); RBC 4.75 M/mm3 (4.00-5.60); RDW 15.7 % (11.9-15.9); WHITE BLOOD COUNT 5.6 K/mm3 (4.0-10.0)
[2017-08-10 10:30] LABS: CHLORIDE 106 mmol/L (98-107); POTASSIUM 3.6 mmol/L (3.5-5.1); SODIUM 142 mmol/L (136-145)
[2017-08-10 10:50] LABS: ALBUMIN 2.8 g/dl (3.4-5.0); ALK PHOS 70 U/L (45-117); ANION GAP 7 (8-16); BILIRUBIN,TOTAL 0.1 mg/dL (0.2-1.0); BLOOD UREA NITROGEN 8 mg/dL (7-18); CALCIUM 8.4 mg/dL (8.5-10.1); CO2 29 mmol/L (21-32); GLUCOSE,RANDOM 98 mg/dL (74-106); SGOT/AST 16 U/L (15-37); SGPT/ALT 25 U/L (12-78); TOT PROT 5.9 g/dl (6.4-8.2)
--- NOTE | 2017-08-10 11:18 | CONSULT ---
[facility] Psychiatric Consult - Data Date of interview: 08/10/17 Admission source: [facility] Identifying data: This is 51 years old obese male, single father of two, living alone, on PA, with psychiatric hospitalization history, with history of Bipolar disorder, intoxicated with Heroin, Alcohol, Xanax and Nicotine, is seeking for detox reporting withdrawal symptoms. Substance Abuse History: Urine Drug Screen Results: OPI-Opiates, BZO- Benzodiazepines, MTD-Methadone, OXY-Oxycodone. Smoking history: Current every day smoker. Have you smoked in the past 12 months: Yes. Aproximately how many cigarettes per day: 20. Cigars Per Day: 0. Hx Chewing Tobacco Use: No. Initiated information on smoking cessation: Yes. 'Breaking Loose' booklet given : 08/09/17. - Substance & Tx. History. Hx Alcohol Use: Yes. Hx Substance Use : No. Substance Use Type: Alcohol, Heroin, Tranquilizers. Hx Substance Use Treatment: Yes ([facility]). - Substances Abused. Alcohol. Route: Oral. Frequency: Daily. Amount used: liquor- 1 pint. Age of first use: 20. Date of Last Use: 08/09/17. Heroin. Route: Inhalation. Frequency: Daily. Amount used: 12bags. Age of first use: 17. Date of Last Use: 08/08/17. Alprazolam (Xanax). Route: Oral. Frequency: Daily. Amount used: 2mg. Age of first use: 32. Date of Last Use: 08/08/17 Medical History: Denies any significant medical problem Psychiatric History: Lorenatne reports unclear Bipolar Disorder history, as per computer has a history of;mdd, ptsd, lorenzo. Patien trefusing taking preadmition medications;. Seroquel 100mg po qhs. Wellbutrin XL 150mg poqd Physical/Sexual Abuse/Trauma History: Denies Additional Comment: Urine Drug Screen Results: OPI-Opiates, BZO-Benzodiazepines , MTD-Methadone, OXY-Oxycodone Mental Status Exam - Mental Status Exam Alert and Oriented to: Person Cognitive Function: Fair Patient Appearance: Unkempt Mood: Sad Affect: Flat Patient Behavior: Sedated Speech Pattern: Delayed Voice Loudness: Mildly Soft/Quiet Thought Process: Circumstantial Thought Disorder: Being Controlled Hallucinations: Denies Suicidal Ideation: Denies Homicidal Ideation: Denies Insight/Judgement: Fair Sleep: Difficulty falling asleep Appetite: Fair Muscle strength/Tone: Mild Hypotonicity Gait/Station: Shuffling Additional Comments: Patient refusing taking preadmition medications;. Seroquel 100mg po qhs. Wellbutrin XL 150mg poqd Psychiatric Findings - Problem List ([place] 1, 2,3) (1) Alcohol dependence with uncomplicated withdrawal Current Visit: Yes Status: Acute (2) Opioid dependence with withdrawal Current Visit: Yes Status: Acute (3) Sedative, hypnotic or anxiolytic dependence with withdrawal, uncomplicated Current Visit: Yes Status: Acute (4) Nicotine dependence Current Visit: Yes Status: Chronic Qualifiers: Nicotine product type: cigarettes Substance use status: in withdrawal Qualified Code(s): F17.213 - Nicotine dependence, cigarettes, with withdrawal Comment: .. (5) LORENZO (generalized anxiety disorder) Current Visit: Yes Status: Suspected Comment: .. (6) MDD (major depressive disorder) Current Visit: Yes Status: Suspected Comment: .. (7) PTSD (post-traumatic stress disorder) Current Visit: Yes Status: Suspected Comment: .. (8) Substance induced mood disorder Current Visit: Yes Status: Suspected (9) Alcohol dependence Current Visit: No Status: Acute Qualifiers: Substance use status: uncomplicated Qualified Code(s): F10.20 - Alcohol dependence, uncomplicated Comment: .. (10) Opioid dependence Current Visit: No Status: Acute Qualifiers: Substance use status: uncomplicated Qualified Code(s): F11.20 - Opioid dependence, uncomplicated Comment: .. (11) Opioid dependence with intoxication, uncomplicated Current Visit: No Status: Acute (12) Sedative hypnotic or anxiolytic dependence Current Visit: No Status: Acute Comment: .. (13) Obesity (BMI 30-39.9) Current Visit: No Status: Chronic - Initial Treatment Plan Initial Treatment Plan: Patien trefusing taking preadmition medications;. Seroquel 100mg po qhs. Wellbutrin XL 150mg poqd
--- NOTE | 2017-08-10 11:42 | EKG ---
Test Reason : Blood Pressure : / mmHG Vent. Rate : 094 BPM Atrial Rate : 094 BPM P-R Int : 170 ms QRS Dur : 100 ms QT Int : 366 ms P-R-T Axes : 051 -11 032 degrees QTc Int : 457 ms POOR DATA QUALITY, INTERPRETATION MAY BE ADVERSELY AFFECTED NORMAL SINUS RHYTHM NORMAL ECG WHEN COMPARED WITH ECG OF 24-JUN-2017 15:56, PREMATURE VENTRICULAR COMPLEXES ARE NO LONGER PRESENT Confirmed by ALBERTA SIMMS, TRINI ([id number]) on 08/10/2017 11:41:56 AM Referred By: Confirmed By:TRINI PINZON MD
--- NOTE | 2017-08-10 11:49 | PN ---
[facility] CIWA - CIWA Score Nausea/Vomitin-Mild Nausea/No Vomiting Muscle Tremors: 4-Moderate,w/Arms Extend Anxiety: 4-Mod. Anxious/Guarded Agitation: 4-Moderately Restless Paroxysmal Sweats: 1-Minimal Palms Moist Orientation: 1-Uncertain about Date Tacttile Disturbances: 1-Very Mild Itch/Numbness Auditory Disturbances: 0-None Visual Disturbances: 0-None Headache: 1-Very Mild CIWA-Ar Total Score: 17 BHS COWS - Scale Resting Pulse: 0= [place] 80 or Below Sweatin= Chills/Flushing Restless Observation: 1= Difficult to Sit Still Pupil Size: 0= Normal to Room Light Bone or Joint Aches: 2= Severe Diffuse Aches Runny Nose/ Eye Tearin= Runny Nose/Eyes GI Upset > 30mins: 2= Nausea/Diarrhea Tremor Observation of Outstretched Hands: 2= Slight Tremor Visible Yawning Observation: 2= >3x During Session Anxiety or Irritability: 2=Irritable/Anxious Goose Flesh Skin: 3=Piloerection COWS Score: 17 [facility] Progress Note (SOAP) Subjective: joint pain body ache anxiety restlessness trouble sleep at night irritable gi distress Objective: 08/10/17 11:45 Vital Signs Temperature 9705 F H 08/10/17 09:05 Pulse Rate 67 08/10/17 09:05 Respiratory Rate 22 08/10/17 09:05 Blood Pressure 115/65 08/10/17 09:05 O2 Sat by Pulse Oximetry (%) Laboratory Last Values WBC 5.6 K/mm3 (4.0-10.0) 08/10/17 08:00 RBC 4.75 M/mm3 (4.00-5.60) 08/10/17 08:00 Hgb 12.2 GM/dL (11.7-16.9) 08/10/17 08:00 Hct 36.8 % (35.4-49) 08/10/17 08:00 MCV 77.4 fl (80-96) L 08/10/17 08:00 MCH 25.6 pg (25.7-33.7) L 08/10/17 08:00 MCHC 33.1 g/dl (32.0-35.9) 08/10/17 08:00 RDW 15.7 % (11.9-15.9) 08/10/17 08:00 Plt Count 234 K/MM3 (134-434) D 08/10/17 08:00 MPV 8.9 fl (7.5-11.1) 08/10/17 08:00 Sodium 142 mmol/L (136-145) 08/10/17 08:00 Potassium 3.6 mmol/L (3.5-5.1) 08/10/17 08:00 Chloride 106 mmol/L (98-107) 08/10/17 08:00 Carbon Dioxide 29 mmol/L (21-32) 08/10/17 08:00 Anion Gap 7 (8-16) L 08/10/17 08:00 BUN 8 mg/dL (7-18) D 08/10/17 08:00 Creatinine 1.0 mg/dL (0.7-1.3) 08/10/17 08:00 Creat Clearance w eGFR > 60 (>60) 08/10/17 08:00 Random Glucose 98 mg/dL (74-106) 08/10/17 08:00 Calcium 8.4 mg/dL (8.5-10.1) L 08/10/17 08:00 Total Bilirubin 0.1 mg/dL (0.2-1.0) L D 08/10/17 08:00 AST 16 U/L (15-37) D 08/10/17 08:00 ALT 25 U/L (12-78) 08/10/17 08:00 Alkaline Phosphatase 70 U/L (45-117) 08/10/17 08:00 Total Protein 5.9 g/dl (6.4-8.2) L 08/10/17 08:00 Albumin 2.8 g/dl (3.4-5.0) L 08/10/17 08:00 Urine Color Yellow 08/09/17 22:00 Urine Appearance Clear 08/09/17 22:00 Urine pH 5.0 (5.0-8.0) D 08/09/17 22:00 Ur Specific [place] 1.013 (1.001-1.035) 08/09/17 22:00 Urine Protein Negative (NEGATIVE) 08/09/17 22:00 Urine Glucose (UA) Negative (NEGATIVE) 08/09/17 22:00 Urine Ketones Negative (NEGATIVE) 08/09/17 22:00 Urine Blood Negative (NEGATIVE) 08/09/17 22:00 Urine Nitrite Negative (NEGATIVE) 08/09/17 22:00 Urine Bilirubin Negative (<2.0 mg/dL) 08/09/17 22:00 Urine Urobilinogen Negative mg/dL (0.2-1.0) 08/09/17 22:00 Ur Leukocyte Esterase Negative (NEGATIVE) 08/09/17 22:00 lab noted Assessment: 08/10/17 11:48 withdrawal sx Plan: continue detox
[2017-08-11] MEDS: chlordiazePOXIDE HCL 25 MG CAPSULE PO SCH ×2 (06:38→11:34)
[2017-08-11] MEDS ORDERED: METHADONE HCL 5 MG TABLET (FOR DETOX USE ONLY) PO SCH (10:00)
[2017-08-11] MEDS ORDERED: METHADONE HCL 10 MG TABLET (FOR DETOX USE ONLY) PO ONE (10:00)
[2017-08-11] MEDS ORDERED: CYCLOBENZAPRINE HCL 10 MG TABLET (FP) PO PRN (10:17)
[2017-08-11] MEDS ORDERED: cloNIDine HCL 0.1 MG TABLET PO ONE (10:17)
[2017-08-11] MEDS ORDERED: CYCLOBENZAPRINE HCL 10 MG TABLET (FP) PO ONE (10:17)
[2017-08-11] MEDS ORDERED: cloNIDine HCL 0.1 MG TABLET PO SCH (10:30)
--- NOTE | 2017-08-11 10:47 | PN ---
S CIWA - CIWA Score Nausea/Vomitin Muscle Tremors: 3 Anxiety: 3 Agitation: 3 Paroxysmal Sweats: 1-Minimal Palms Moist Orientation: 0-Oriented Tacttile Disturbances: 1-Very Mild Itch/Numbness Auditory Disturbances: 1-Very Mild Visual Disturbances: 0-None Headache: 2-Mild CIWA-Ar Total Score: 17 BHS COWS - Scale Resting Pulse: 0= [place] 80 or Below Sweatin= Chills/Flushing Restless Observation: 3= Extraneous Movement Pupil Size: 1= Pupils >than Normal Bone or Joint Aches: 2= Severe Diffuse Aches Runny Nose/ Eye Tearin= Runny Nose/Eyes GI Upset > 30mins: 2= Nausea/Diarrhea Tremor Observation of Outstretched Hands: 2= Slight Tremor Visible Yawning Observation: 1= 1-2x During Session Anxiety or Irritability: 2=Irritable/Anxious Goose Flesh Skin: 0=Smooth Skin COWS Score: 16 S Progress Note (SOAP) Subjective: alert,irritable,anxious,interrupted sleep,tremor,pain in the body and back Objective: 08/11/17 10:45 Vital Signs Temperature 98.1 F 08/11/17 06:00 Pulse Rate 49 L 08/11/17 06:00 Respiratory Rate 20 08/11/17 06:00 Blood Pressure 108/66 08/11/17 06:00 O2 Sat by Pulse Oximetry (%) Laboratory Last Values WBC 5.6 K/mm3 (4.0-10.0) 08/10/17 08:00 RBC 4.75 M/mm3 (4.00-5.60) 08/10/17 08:00 Hgb 12.2 GM/dL (11.7-16.9) 08/10/17 08:00 Hct 36.8 % (35.4-49) 08/10/17 08:00 MCV 77.4 fl (80-96) L 08/10/17 08:00 MCH 25.6 pg (25.7-33.7) L 08/10/17 08:00 MCHC 33.1 g/dl (32.0-35.9) 08/10/17 08:00 RDW 15.7 % (11.9-15.9) 08/10/17 08:00 Plt Count 234 K/MM3 (134-434) D 08/10/17 08:00 MPV 8.9 fl (7.5-11.1) 08/10/17 08:00 Sodium 142 mmol/L (136-145) 08/10/17 08:00 Potassium 3.6 mmol/L (3.5-5.1) 08/10/17 08:00 Chloride 106 mmol/L (98-107) 08/10/17 08:00 Carbon Dioxide 29 mmol/L (21-32) 08/10/17 08:00 Anion Gap 7 (8-16) L 08/10/17 08:00 BUN 8 mg/dL (7-18) D 08/10/17 08:00 Creatinine 1.0 mg/dL (0.7-1.3) 08/10/17 08:00 Creat Clearance w eGFR > 60 (>60) 08/10/17 08:00 Random Glucose 98 mg/dL (74-106) 08/10/17 08:00 Calcium 8.4 mg/dL (8.5-10.1) L 08/10/17 08:00 Total Bilirubin 0.1 mg/dL (0.2-1.0) L D 08/10/17 08:00 AST 16 U/L (15-37) D 08/10/17 08:00 ALT 25 U/L (12-78) 08/10/17 08:00 Alkaline Phosphatase 70 U/L (45-117) 08/10/17 08:00 Total Protein 5.9 g/dl (6.4-8.2) L 08/10/17 08:00 Albumin 2.8 g/dl (3.4-5.0) L 08/10/17 08:00 Urine Color Yellow 08/09/17 22:00 Urine Appearance Clear 08/09/17 22:00 Urine pH 5.0 (5.0-8.0) D 08/09/17 22:00 Ur Specific [place] 1.013 (1.001-1.035) 08/09/17 22:00 Urine Protein Negative (NEGATIVE) 08/09/17 22:00 Urine Glucose (UA) Negative (NEGATIVE) 08/09/17 22:00 Urine Ketones Negative (NEGATIVE) 08/09/17 22:00 Urine Blood Negative (NEGATIVE) 06/06/18 22:00 Urine Nitrite Negative (NEGATIVE) 08/09/17 22:00 Urine Bilirubin Negative (<2.0 mg/dL) 08/09/17 22:00 Urine Urobilinogen Negative mg/dL (0.2-1.0) 08/09/17 22:00 Ur Leukocyte Esterase Negative (NEGATIVE) 08/09/17 22:00 RPR Titer Nonreactive (NONREACTIVE) 08/10/17 08:00 HIV 1&2 Antibody Screen Negative 08/10/17 08:00 HIV P24 Antigen Negative 08/10/17 08:00 Assessment: 08/11/17 10:46 withdrawal symptom Plan: continue detox
--- NOTE | 2017-08-11 10:48 | PN ---
S Progress Note Note: patient did not want to complete treatment,signed release ama,seen by counselor
--- NOTE | 2017-08-11 10:51 | DS ---
[facility] Detox Discharge Summary Admission Date: 08/09/17 Discharge Date: 08/11/17 - History Present History: Alcohol Dependence, Opioid Dependence, Sedative Dependence Additional Comments: patient did not want to complete treatment,signed release ama, Pertinent Past History: nicotine dependence anxiety depression - Physical Exam Results Vital Signs: Vital Signs Temperature 98.1 F 08/11/17 06:00 Pulse Rate 49 L 08/11/17 06:00 Respiratory Rate 20 08/11/17 06:00 Blood Pressure 108/66 08/11/17 06:00 O2 Sat by Pulse Oximetry (%) Pertinent Admission Physical Exam Findings: withdrawal signs and symptom - Medication Discharge Medications: Ambulatory Orders Clotrimazole [Lotrimin 1% Cream -] 1 applic TP BID 05/24/17 Bupropion HCl [Wellbutrin Xl -] 150 mg PO DAILY #30 tab.sr.24h 06/25/17 Quetiapine Fumarate [Seroquel] 100 mg PO HS #30 tablet 06/25/17 Gabapentin [Neurontin -] 300 mg PO TID 08/09/17 - Diagnosis (1) Opioid dependence with withdrawal Current Visit: Yes Status: Acute (2) Alcohol dependence with uncomplicated withdrawal Current Visit: Yes Status: Acute (3) Sedative, hypnotic or anxiolytic dependence with withdrawal, uncomplicated Current Visit: Yes Status: Acute (4) Nicotine dependence Current Visit: Yes Status: Chronic Qualifiers: Nicotine product type: cigarettes Substance use status: in withdrawal Qualified Code(s): F17.213 - Nicotine dependence, cigarettes, with withdrawal (5) RUSSELL (generalized anxiety disorder) Current Visit: Yes Status: Suspected (6) MDD (major depressive disorder) Current Visit: Yes Status: Suspected - AMA Did Patient Leave Against Medical Advice: Yes
[2017-08-11 11:22] VITALS: BP 137/79; PULSE 58; TEMP 98.2
[2017-08-11] MEDS: NICOTINE 14 MG/24 HOURS TOPICAL PATCH TD SCH (11:32)
[2017-08-11] MEDS: PRENATAL VITAMINS W/ FOLIC ACID TABLET (FP) PO SCH (11:33)
[2017-08-11] MEDS ORDERED: chlordiazePOXIDE 5 MG CAPSULE PO SCH (23:00)
[2017-08-12] MEDS ORDERED: METHADONE HCL 5 MG TABLET (FOR DETOX USE ONLY) PO ONE (10:00)
[2017-08-12] MEDS ORDERED: chlordiazePOXIDE HCL 10 MG CAPSULE PO SCH (23:00)
[2017-08-13] MEDS ORDERED: METHADONE HCL 10 MG TABLET (FOR DETOX USE ONLY) PO SCH (10:00)
[2017-08-13] MEDS ORDERED: METHADONE HCL 5 MG TABLET (FOR DETOX USE ONLY) PO ONE (10:00)
[2017-08-14] MEDS ORDERED: METHADONE HCL 5 MG TABLET (FOR DETOX USE ONLY) PO SCH (06:00)
[2017-08-14] MEDS ORDERED: METHADONE HCL 10 MG TABLET (FOR DETOX USE ONLY) PO ONE (10:00)
[2017-08-15] MEDS ORDERED: METHADONE HCL 5 MG TABLET (FOR DETOX USE ONLY) PO ONE (06:00)
== END 2017-08-11 11:30 | disposition left against medical advice (07) | DRG 770 ==
LOC: YASAS 14:06 → Y6N 19:18
PROVIDERS: ADMIT Surgery; ATTEND Surgery
PROC: HZ2ZZZZ Detoxification Services for Substance Abuse Treatment (ICD-10-PCS; principal; 2017-08-09)
DX: F11.23 Opioid dependence with withdrawal (principal); F11.220 Opioid dependence with intoxication, uncomplicated; F10.230 Alcohol dependence with withdrawal, uncomplicated; F13.230 Sedative, hypnotic or anxiolytic dependence with withdrawal, uncomplicated; F17.213 Nicotine dependence, cigarettes, with withdrawal; F41.1 Generalized anxiety disorder; F33.9 Major depressive disorder, recurrent, unspecified; F43.10 Post-traumatic stress disorder, unspecified; F19.24 Other psychoactive substance dependence with psychoactive substance-induced mood disorder; K59.01 Slow transit constipation; R00.0 Tachycardia, unspecified; E66.9 Obesity, unspecified; Z68.35 Body mass index [BMI] 35.0-35.9, adult; Z91.012 Allergy to eggs; Z91.018 Allergy to other foods
CPT/HCPCS: 36415; 80053; 81003; 85027; 86593; 87389; 93005; 93010

== ENCOUNTER 2018-02-23 13:24 | Inpatient (IN) | payer OTHER ==
[2018-02-23 14:36] VITALS: BMI 42.3
--- NOTE | 2018-02-23 15:05 | HP ---
COWS - Scale Resting Pulse: 1= NC 81-100 Sweatin=Flushed/Facial Moisture Restless Observation: 1= Difficult to Sit Still Pupil Size: 1= Pupils >than Normal Bone or Joint Aches: 2= Severe Diffuse Aches Runny Nose/ Eye Tearin= Nasal Congestion GI Upset > 30mins: 1= Stomach Cramp Tremor Observation: 1= Tremor [place], Not Seen Yawning Observation: 0= None Anxiety or Irritability: 1=Feels Anxious/Irritable Goose Flesh Skin: 0=Smooth Skin COWS Score: 11 CIWA Score Nausea/Vomitin Muscle Tremors: 2 Anxiety: 2 Agitation: 1-Slight > Activity Paroxysmal Sweats: 3 Orientation: 0-Oriented Tacttile Disturbances: 2-Mild Itch/Numbness/Burn Auditory Disturbances: 0-None Visual Disturbances: 0-None Headache: 0-None Present CIWA-Ar Total Score: 12 - Admission Criteria OASAS Guidelines: Admission for Medically Managed Detox: Requires at least one of the followin. CIWA greater than 12 2. Seizures within the past 24 hours 3. Delirium tremens within the past 24 hours 4. Hallucinations within the past 24 hours 5. Acute intervention needed for co occurring medical disorder 6. Acute intervention needed for co occurring psychiatric disorder 7. Severe withdrawal that cannot be handled at a lower level of care (continued vomiting, continued diarrhea, abnormal vital signs) requiring intravenous medication and/or fluids 8. Patient presents the following: CIWA greater than 12 Admission Criteria Met: Admission criteria met Admission ROS [facility] Chief Complaint: I must stop using drugs and alcohol. Allergies/Adverse Reactions: Allergies Allergy/AdvReac Type Severity Reaction Status Date / Time Egg Derived Allergy Unknown Vomiting Verified 09/07/17 18:14 No Known Drug Allergies Allergy Verified 08/09/17 20:28 Red meat AdvReac Severe Nausea Uncoded 08/09/17 20:28 History of Present Illness: 52 y/o m pt with a lonstanding h/x polysubstance abuse / dep /seeking detox and rehab. Exam Limitations: No Limitations - Ebola screening Have you traveled outside of the country in the last 21 days: No (N) Have you had contact with anyone from an Ebola affected area: No Have you been sick,other than usual withdrawal symptoms: No Do you have a fever: No - Review of Systems Constitutional: Malaise, Night Sweats, Weakness EENT: reports: Nose Congestion Respiratory: reports: No Symptoms reported Cardiac: reports: No Symptoms Reported GI: reports: Abdominal cramping : reports: Frequency Musculoskeletal: reports: Back Pain, Joint Stiffness (rt hip - had MRI in JAN 2018 - results pending) Integumentary: reports: Sweating Endocrine: reports: No Symptoms Reported Hematology: reports: No Symptoms Reported Psychiatric: reports: Anxious, Depressed Other Systems: Reviewed and Negative Patient History - Patient Medical History Hx Anemia: No Hx Asthma: Yes (childhood, Not on medication) Hx Chronic Obstructive Pulmonary Disease (COPD): No Hx Cancer: No Hx Cardiac Disorders: No Hx Congestive Heart Failure: No Hx Hypertension: No (Denies) Hx Hypercholesterolemia: No Hx Pacemaker: No HX Cerebrovascular Accident: No Hx Seizures: No Hx Dementia: No Hx Diabetes: No Hx Gastrointestinal Disorders: No Hx Liver Disease: No Hx Genitourinary Disorders: No Hx Sexually Transmitted Disorders: No Hx Renal Disease (ESRD): No Hx Thyroid Disease: No Hx Human Immunodeficiency Virus (HIV): No Hx Hepatitis C: No Hx Depression: Yes Hx Suicide Attempt: No Hx Bipolar Disorder: Yes (no psych meds since being here) Hx Schizophrenia: No - Patient Surgical History Past Surgical History: No Hx Neurologic Surgery: No Hx Cataract Extraction: No Hx Cardiac Surgery: No Hx Lung Surgery: No Hx Breast Surgery: No Hx Breast Biopsy: No Hx Abdominal Surgery: No Hx Appendectomy: No Hx Cholecystectomy: No Hx Genitourinary Surgery: No Hx Section: No Hx Orthopedic Surgery: No Anesthesia Reaction: No - PPD History Date: 12/25/16 Results: omm PPD to be Administered?: Yes - Reproductive History Patient is a Female of Child Bearing Age (11 -55 yrs old): No - Smoking Cessation Smoking history: Current every day smoker Have you smoked in the past 12 months: Yes Aproximately how many cigarettes per day: 20 Cigars Per Day: 0 Hx Chewing Tobacco Use: No Initiated information on smoking cessation: Yes 'Breaking Loose' booklet given: 02/23/18 - Substance & Tx. History Hx Alcohol Use: Yes Hx Substance Use: Yes Substance Use Type: Alcohol, Heroin, Tranquilizers Hx [facility] - Substances Abused Alcohol Route: Oral Frequency: Daily Amount used: cognac 1/2-1 pt /day Age of first use: 19 Date of Last Use: 02/22/18 Alprazolam (Xanax) Route: Oral Frequency: Daily Amount used: 8mg/d Age of first use: 34 Date of Last Use: 02/23/18 Heroin Route: Inhalation Frequency: Daily Amount used: 15 Age of first use: 16 Date of Last Use: 02/23/18 Family Disease History - Family Disease History Family Disease History: Other: Father (), Mother () Admission Physical Exam [facility] - Vital Signs Vital Signs: Vital Signs - 24 hr 02/23/18 14:35 Temperature 98.1 F Pulse Rate 98 H Respiratory 20 Rate Blood Pressure 161/92 52 y/o obese m pt aox3 in nad , cooperative with exam . 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 (3) Nicotine dependence Current Visit: Yes Status: Chronic Qualifiers: Nicotine product type: cigarettes Substance use status: in withdrawal Qualified Code(s): F17.213 - Nicotine dependence, cigarettes, with withdrawal Comment: .. (4) Obesity (BMI 30-39.9) Current Visit: Yes Status: Chronic (5) HTN (hypertension) Current Visit: Yes Status: Acute Qualifiers: Hypertension type: essential hypertension Qualified Code(s): I10 - Essential (primary) hypertension Cleared for Admission [facility] - Detox or Rehab [facility] Level of Care: Medically Managed Detox Regimen/Protocol: Methadone/Librium, Methadone/Valium [facility] Breath Alcohol Content Breath Alcohol Content: 0 Urine Drug Screen - Results Drug Screen Negative: No Urine Drug Screen Results: OPI-Opiates, BZO-Benzodiazepines, MTD-Methadone, OXY- Oxycodone
[2018-02-23] MEDS ORDERED: MAG HYDROX/AL HYDROX/SIMETH 30 ML UNIT-DOSE CUP PO PRN (15:26)
[2018-02-23] MEDS ORDERED: LOPERAMIDE HCL 2 MG CAPSULE PO PRN (15:26)
[2018-02-23] MEDS ORDERED: MAGNESIUM HYDROX 2400MG/30ML ORAL SUSPENSION 30 ML CUP PO PRN (15:26)
[2018-02-23] MEDS ORDERED: ACETAMINOPHEN 325 MG TABLET (FP) PO PRN (15:26)
[2018-02-23] MEDS ORDERED: IBUPROFEN 400 MG TABLET (FP) PO PRN (15:26)
[2018-02-23] MEDS ORDERED: MAGNESIUM CITRATE 300 ML BOTTLE PO PRN (15:26)
[2018-02-23] MEDS ORDERED: MENTHOL/PHENOL 1 EACH UD MM PRN (15:26)
[2018-02-23] MEDS ORDERED: P-EPHED 60MG/TRIPROLIDI 2.5MG TABLET PO PRN (15:26)
[2018-02-23] MEDS ORDERED: diazePAM 5 MG TABLET PO PRN (15:26)
[2018-02-23] MEDS ORDERED: guaiFENesin/D-METHORPHAN HB 10 ML UNIT-DOSE CUPS PO PRN (15:26)
[2018-02-23] MEDS ORDERED: METHADONE HCL 10 MG TABLET (FOR DETOX USE ONLY) PO ONE ×2 (18:00→23:00)
[2018-02-23] MEDS ORDERED: diazePAM 5 MG TABLET PO ONE (18:00)
[2018-02-23] MEDS ORDERED: MELATONIN 5 MG TABLETS PO PRN (22:00)
[2018-02-23] MEDS: diazePAM 5 MG TABLET PO SCH (22:35)
[2018-02-23] MEDS: THIAMINE HCL 100 MG TABLET (FP) PO SCH (22:35)
[2018-02-24] MEDS: diazePAM 5 MG TABLET PO SCH ×3 (06:17→22:55)
[2018-02-24] MEDS ORDERED: METHADONE HCL 10 MG TABLET (FOR DETOX USE ONLY) PO SCH (10:00)
--- NOTE | 2018-02-24 11:15 | PN ---
[facility] CIWA - CIWA Score Nausea/Vomitin Muscle Tremors: 2 Anxiety: 2 Agitation: 2 Orientation: 0-Oriented Tacttile Disturbances: 1-Very Mild Itch/Numbness Auditory Disturbances: 0-None Visual Disturbances: 1-Very Mild Sensitivity Headache: 2-Mild BHS COWS - Scale Resting Pulse: 0= CT 80 or Below Sweatin= Chills/Flushing Restless Observation: 3= Extraneous Movement Pupil Size: 1= Pupils >than Normal Bone or Joint Aches: 2= Severe Diffuse Aches Runny Nose/ Eye Tearin= Runny Nose/Eyes GI Upset > 30mins: 2= Nausea/Diarrhea Tremor Observation of Outstretched Hands: 2= Slight Tremor Visible Yawning Observation: 1= 1-2x During Session Anxiety or Irritability: 2=Irritable/Anxious Goose Flesh Skin: 0=Smooth Skin COWS Score: 16 [facility] Progress Note (SOAP) Subjective: alert,irritable,anxious,interrupted,pain in the body and back,interrupted sleep Objective: 02/24/18 11:13 Vital Signs Temp 98.1 F 02/24/18 06:21 Pulse 74 02/24/18 06:21 Resp 20 02/24/18 06:21 BP 145/97 02/24/18 06:21 Pulse Ox Intake & Output 02/23/18 02/23/18 02/24/18 11:59 23:59 11:59 Weight 262 lb Other: Voiding Method Toilet Toilet Height 5 ft 6 in Body Mass Index (BMI) 42.3 Weight Measurement Method Standing Scale Assessment: 02/24/18 11:13 Vital Signs Temperature 98.1 F 02/24/18 06:21 Pulse Rate 74 02/24/18 06:21 Respiratory Rate 20 02/24/18 06:21 Blood Pressure 145/97 02/24/18 06:21 O2 Sat by Pulse Oximetry (%) 02/24/18 11:14 withdrawal symptom Plan: continue detox
[2018-02-24] MEDS: PRENATAL VITAMINS W/ FOLIC ACID TABLET (FP) PO SCH (11:16)
[2018-02-24] MEDS ORDERED: CYCLOBENZAPRINE HCL 10 MG TABLET (FP) PO PRN (11:17)
[2018-02-24 11:19] LABS: ALK PHOS 57 U/L (45-117); ANION GAP 7 MMOL/L (8-16); BILIRUBIN,TOTAL 0.2 mg/dL (0.2-1); BLOOD UREA NITROGEN 7 mg/dL (7-18); CALCIUM 8.4 mg/dL (8.5-10.1); CHLORIDE 105 mmol/L (98-107); CO2 29 mmol/L (21-32); GLUCOSE,RANDOM 86 mg/dL (74-106); POTASSIUM 3.7 mmol/L (3.5-5.1); SGOT/AST 17 U/L (15-37); SGPT/ALT 21 U/L (13-61); SODIUM 141 mmol/L (136-145); TOT PROT 6.2 g/dl (6.4-8.2)
[2018-02-24 11:23] LABS: HEMATOCRIT 36.9 % (35.4-49); HEMOGLOBIN 11.7 GM/dL (11.7-16.9); MCHC 31.6 g/dl (32.0-35.9); MEAN CELL VOLUME 79.1 fl (80-96); MEAN PLT VOLUME 8.9 fl (7.5-11.1); PLATELET COUNT 229 K/MM3 (134-434); RBC 4.67 M/mm3 (4.00-5.60); RDW 16.4 % (11.9-15.9); WHITE BLOOD COUNT 5.3 K/mm3 (4.0-10.0)
[2018-02-24 11:54] LABS: URINE APPEARANCE CLEAR; URINE BILIRUBIN NEGATIVE (<2.0 mg/dL); URINE COLOR STRAW; URINE GLUCOSE (UA) NEGATIVE (NEGATIVE); URINE KETONE NEGATIVE (NEGATIVE); URINE LEUK ESTERASE NEGATIVE (NEGATIVE); URINE NITRITE NEGATIVE (NEGATIVE); URINE PROTEIN NEGATIVE (NEGATIVE); URINE UROBILINOGEN NEGATIVE mg/dL (0.2-1.0)
[2018-02-24] MEDS: cloNIDine HCL 0.1 MG TABLET PO SCH (22:54)
[2018-02-24] MEDS: THIAMINE HCL 100 MG TABLET (FP) PO SCH (22:55)
[2018-02-25 09:16] VITALS: BP 150/78; PULSE 53; TEMP 97
[2018-02-25] MEDS ORDERED: METHADONE HCL 5 MG TABLET (FOR DETOX USE ONLY) PO SCH (10:00)
[2018-02-25] MEDS ORDERED: diazePAM 5 MG TABLET PO SCH (10:00)
[2018-02-25] MEDS: cloNIDine HCL 0.1 MG TABLET PO SCH (10:04)
[2018-02-25] MEDS: PRENATAL VITAMINS W/ FOLIC ACID TABLET (FP) PO SCH (10:04)
--- NOTE | 2018-02-25 13:29 | DS ---
[facility] Detox Discharge Summary Admission Date: 02/23/18 Discharge Date: 02/25/18 - History Present History: Alcohol Dependence, Opioid Dependence, Sedative Dependence Additional Comments: Patient demanding to leave AMA. As per patient, he has been here many times and he was getting methadone biscuit which is the brand name and is stronger than what he's getting now and is demanding to receive only the biscuit and that methadone 20mg is not strong enough. Patient also met with the counselor who encouraged him to stay as well. Patient took his morning medications and then demanded to leave AMA despite encouragement to complete detox and go to rehab. Patient demanded to have his belongings and stated that he just wants to leave and is not signing any papers. Patient instructed to call 911 if feeling sick or any withdrawal symptoms and to see his PCP within 3 days. Patient is A, A, Ox3, in nad, vs noted (b/p elevated, he denied htn; he is ambulating freely on unit. Patient verbalized understanding of instructions regarding follow up care and calling 911. Pertinent Past History: Asthma Obesity Depression Bipolar disorder Nicotine dependence Opioid dependence Sedative dependence Alcohol dependence - Physical Exam Results Vital Signs: Vital Signs Temperature 97.0 F L 02/25/18 09:15 Pulse Rate 53 L 02/25/18 09:15 Respiratory Rate 18 02/25/18 09:15 Blood Pressure 150/78 02/25/18 09:15 O2 Sat by Pulse Oximetry (%) Pertinent Admission Physical Exam Findings: Withdrawal symptoms Laboratory Tests 02/24/18 02/24/18 02/24/18 07:30 07:30 07:30 WBC 5.3 RBC 4.67 Hgb 11.7 Hct 36.9 MCV 79.1 L MCH 25.0 L MCHC 31.6 L RDW 16.4 H Plt Count 229 MPV 8.9 Sodium 141 Potassium 3.7 Chloride 105 Carbon Dioxide 29 Anion Gap 7 L BUN 7 Creatinine 1.0 Creat Clearance w eGFR > 60 Random Glucose 86 Calcium 8.4 L Total Bilirubin 0.2 AST 17 ALT 21 Alkaline Phosphatase 57 Total Protein 6.2 L Albumin 3.0 L Urine Color Urine Appearance Urine pH Ur Specific [place] Urine Protein Urine Glucose (UA) Urine Ketones Urine Blood Urine Nitrite Urine Bilirubin Urine Urobilinogen Ur Leukocyte Esterase RPR Titer Nonreactive 02/24/18 08:47 WBC RBC Hgb Hct MCV MCH MCHC RDW Plt Count MPV Sodium Potassium Chloride Carbon Dioxide Anion Gap BUN Creatinine Creat Clearance w eGFR Random Glucose Calcium Total Bilirubin AST ALT Alkaline Phosphatase Total Protein Albumin Urine Color Straw Urine Appearance Clear Urine pH 6.0 Ur Specific [place] 1.006 L Urine Protein Negative Urine Glucose (UA) Negative Urine Ketones Negative Urine Blood Negative Urine Nitrite Negative Urine Bilirubin Negative Urine Urobilinogen Negative Ur Leukocyte Esterase Negative RPR Titer Labs reviewed - Medication Discharge Medications: Ambulatory Orders NK [No Known Home Medication] 02/23/18 - Diagnosis (1) Asthma Current Visit: Yes Status: Chronic (2) Morbid obesity with BMI of 40.0-44.9, adult Current Visit: Yes Status: Chronic (3) Bipolar disorder Current Visit: Yes Status: Chronic (4) Opioid dependence with intoxication, uncomplicated Current Visit: Yes Status: Acute (5) Sedative hypnotic or anxiolytic dependence Current Visit: Yes Status: Acute (6) Nicotine dependence Current Visit: Yes Status: Chronic Qualifiers: Nicotine product type: cigarettes Substance use status: in withdrawal Qualified Code(s): F17.213 - Nicotine dependence, cigarettes, with withdrawal (7) Alcohol dependence with uncomplicated withdrawal Current Visit: Yes Status: Acute (8) MDD (major depressive disorder) Current Visit: Yes Status: Chronic (9) HTN (hypertension) Current Visit: Yes Status: Chronic Qualifiers: Hypertension type: essential hypertension Qualified Code(s): I10 - Essential (primary) hypertension - AMA Did Patient Leave Against Medical Advice: Yes (Instructed to call 911 [facility] if feeling sick or any withdrawal symptoms)
[2018-02-27] MEDS ORDERED: METHADONE HCL 10 MG TABLET (FOR DETOX USE ONLY) PO SCH (10:00)
[2018-02-27] MEDS ORDERED: diazePAM 5 MG TABLET PO SCH (10:00)
[2018-02-28] MEDS ORDERED: METHADONE HCL 5 MG TABLET (FOR DETOX USE ONLY) PO SCH (06:00)
== END 2018-02-25 13:46 | disposition left against medical advice (07) | DRG 770 ==
LOC: YASAS 13:24 → Y3N 17:36
PROC: HZ2ZZZZ Detoxification Services for Substance Abuse Treatment (ICD-10-PCS; principal; 2018-02-23)
DX: F11.23 Opioid dependence with withdrawal (principal); F10.230 Alcohol dependence with withdrawal, uncomplicated; F13.230 Sedative, hypnotic or anxiolytic dependence with withdrawal, uncomplicated; F33.9 Major depressive disorder, recurrent, unspecified; F31.9 Bipolar disorder, unspecified; I10 Essential (primary) hypertension; E66.01 Morbid (severe) obesity due to excess calories; Z68.41 Body mass index [BMI] 40.0-44.9, adult; Z87.09 Personal history of other diseases of the respiratory system
CPT/HCPCS: 36415; 80053; 81003; 85027; 86593; J0735